=== PATIENT | female | born 1955 | race Caucasian/White ===

== ENCOUNTER → 2017-02-14 | Outpatient (CLI) | payer BC ==
[2016-07-04 15:35] VITALS: BP 139/76
[~2017-02-14] MED LIST: ATOR40TA PO; LISI-338 PO; MELO-156 PO; METH-38 PO; OXYC5TAB PO; TIZA4TAB PO; potassium PO
--- NOTE | 2017-02-14 12:57 | KCIC ---
PROCEDURE Right unilateral digital mammogram with CAD HISTORY Previous left mastectomy TECHNIQUE Bilateral digital routine views were obtained with computer-aided detection. COMPARISON September 28, 2012 and December 28 2015 FINDINGS Density B: Mixed fatty and fibroglandular tissue. There is no suspicious mass, calcifications or areas of architectural distortion. IMPRESSION No suspicious findings. [Recommend routine screening mammography in one year.] This study was interpreted with the benefit of Computerized Aided Detection (CAD). Mammography is not 100% sensitive in detecting breast cancer. Therefore, a self breast exam and a clinical breast exam are very important. A negative mammogram does not negate a clinically suspicious finding and should not result in a delay in biopsying a clinically suspicious abnormality. BI-RADS category 1: Negative. Electronically signed by: Alfred White MD (Feb 14, 2017 12:55:37)
== END | disposition home or self-care (01) ==
LOC: KCIC MAMMO 07:39
PROVIDERS: ATTEND Physician Assistant Medical
DX: Z12.31 Encounter for screening mammogram for malignant neoplasm of breast (principal)
CPT/HCPCS: 77052; G0202; 77067

== ENCOUNTER → 2017-07-16 | Outpatient (CLI) | payer BC ==
[2016-07-04 15:35] VITALS: BP 139/76
[~2017-07-16] MED LIST changes: -MELO-156 PO; +MELO7.5T29 PO
--- NOTE | 2017-07-16 13:06 | KCIC ---
Examination: Ultrasound right lateral calf History: history of bruising one year back. COMPARISON: None available Comparison: None available Findings: No evidence of focal fluid collection identified in the region of the bruise in the right lateral calf region. Examination limited due to patient body habitus. IMPRESSION: No evidence of focal fluid collection or obvious abnormality identified in the right lateral calf region. Electronically signed by: Mike Camacho MD (07/16/2017 1:03 PM) [id number]
== END | disposition home or self-care (01) ==
LOC: KCIC US 10:22
PROVIDERS: ATTEND Physician Assistant Medical
DX: M79.661 Pain in right lower leg (principal); V94.9XXA Unspecified water transport accident, initial encounter
CPT/HCPCS: 76881

== ENCOUNTER 2017-07-29 09:37 | Emergency (ER) | payer BC ==
[~2017-07-29] VITALS: Ht 167.6 cm; Wt 145.1 kg
[~2017-07-29 09:37] MED LIST changes: -OXYC5TAB PO; +OXYC5TAB95 PO
[2017-07-29] MEDS ORDERED: KETOROLAC TROMETHAMINE 30 MG/ML INJ. IV ONE (10:15)
[2017-07-29] MEDS ORDERED: IV NORMAL SALINE 1000ML BAG 1,000 ML IV ONE (10:15)
[2017-07-29] MEDS ORDERED: MORPHINE SULFATE 4 MG/ML DISP.SYRIN. IV ONE (10:15)
--- NOTE | 2017-07-29 10:24 | PHYS DOC ---
Past Medical History Past Medical History: Arthritis, Cancer, High Cholesterol Past Surgical History: Cancer Surgery, Hysterectomy, Lumbar Laminectomy, Tonsillectomy, Other Additional Past Surgical Histo: LAP BAND Alcohol Use: Occasionally Drug Use: None Adult General Chief Complaint Chief Complaint: FLANK PAIN HPI HPI Patient is a 61 year old female who presents with complaints of left flank pain that has gradually gotten worse, he feels like it radiates to the abdomen. Patient denies any trauma. Patient denies any vaginal discharge or dysuria or hematuria. Patient denies any sick contacts. Patient has not had pain like this before. No fevers, chills, rashes, no sick contacts. Review of Systems Review of Systems Constitutional: Denies fever or chills [] HENT: Denies nasal congestion or sore throat [] Respiratory: Denies cough or shortness of breath [] Cardiovascular: No chest pain GI: Yes abdominal pain. Denies nausea, vomiting, bloody stools or diarrhea [] Back: Left-sided flank pain : Denies dysuria or hematuria [] Musculoskeletal: Denies joint pain [] Integument: Denies rash or skin lesions [] Neurologic: Denies headache, focal weakness or sensory changes [] Current Medications Current Medications Current Medications Medications (Trade) Dose Ordered Sig/Kunal Start Time Stop Time Status Last Admin Dose Admin Ketorolac Tromethamine (Toradol) 30 mg 1X ONCE 07/29/17 10:15 07/29/17 10:16 DC 07/29/17 11:02 30 MG Morphine Sulfate 4 mg 1X ONCE 07/29/17 10:15 07/29/17 10:16 DC 07/29/17 11:03 4 MG Sodium Chloride 1,000 ml @ 1,000 mls/hr 1X ONCE 07/29/17 10:15 07/29/17 11:14 DC 07/29/17 11:01 1,000 MLS/HR Allergies Allergies Allergies Coded Allergies Type Severity Reaction Last Updated Verified acetaminophen Allergy Intermediate Hives 07/01/16 Yes Physical Exam Physical Exam Constitutional: Well developed, well nourished, no acute distress, non-toxic appearance. Morbidly obese HENT: Normocephalic, atraumatic, bilateral external ears normal, oropharynx dry , no oral exudates, nose normal. [] Eyes: EOMI, conjunctiva normal, no discharge. [] Neck: Normal range of motion, no tenderness, trachea midline, no stridor. [] Cardiovascular:Heart rate regular rhythm, no murmur, equal pulses, normal perfusion Lungs & Thorax: Bilateral breath sounds clear to auscultation, no tachypnea Abdomen: Bowel sounds normal, soft, no tenderness, no masses, no pulsatile masses. [] Skin: Warm, dry, no erythema, no rash. [] Back: TTP at left lower back and posterior and anterior hip reproduces symptoms. Extremities: No tenderness, no cyanosis, no DVT, ROM intact, no edema. NO evidence of septic joint Neurologic: Alert and oriented X 3, normal motor function, , no focal deficits noted. [] Psychologic: Affect normal, judgement normal, mood normal. [] Current Patient Data Vital Signs Vital Signs Date Time Temp Pulse Resp B/P (MAP) Pulse Ox O2 Delivery O2 Flow Rate FiO2 07/29/17 11:03 16 95 Room Air 07/29/17 10:05 98.6 82 173/96 (121) 98.6 Lab Values Laboratory Tests Test 07/29/17 10:01 07/29/17 11:05 Urine Collection Type Void Urine Color Yellow Urine Clarity Clear Urine pH 5.5 Urine Specific Dixon 1.020 Urine Protein Negative mg/dL (NEG-TRACE) Urine Glucose (UA) Negative mg/dL (NEG) Urine Ketones (Stick) Negative mg/dL (NEG) Urine Blood Negative (NEG) Urine Nitrite Negative (NEG) Urine Bilirubin Negative (NEG) Urine Urobilinogen Dipstick 0.2 mg/dL (0.2 mg/dL) Urine Leukocyte Esterase Negative (NEG) Urine RBC 0 /HPF (0-2) Urine WBC 0 /HPF (0-4) Urine Squamous Epithelial Cells Few /LPF Urine Bacteria 0 /HPF (0-FEW) White Blood Count 6.2 x10^3/uL (4.0-11.0) Red Blood Count 4.46 x10^6/uL (3.50-5.40) Hemoglobin 13.3 g/dL (12.0-15.5) Hematocrit 39.5 % (36.0-47.0) Mean Corpuscular Volume 89 fL (79-100) Mean Corpuscular Hemoglobin 30 pg (25-35) Mean Corpuscular Hemoglobin Concent 34 g/dL (31-37) Red Cell Distribution Width 13.4 % (11.5-14.5) Platelet Count 188 x10^3/uL (140-400) Neutrophils (%) (Auto) 70 % (31-73) Lymphocytes (%) (Auto) 23 % (24-48) L Monocytes (%) (Auto) 5 % (0-9) Eosinophils (%) (Auto) 2 % (0-3) Basophils (%) (Auto) 0 % (0-3) Neutrophils # (Auto) 4.3 x10^3uL (1.8-7.7) Lymphocytes # (Auto) 1.4 x10^3/uL (1.0-4.8) Monocytes # (Auto) 0.3 x10^3/uL (0.0-1.1) Eosinophils # (Auto) 0.1 x10^3/uL (0.0-0.7) Basophils # (Auto) 0.0 x10^3/uL (0.0-0.2) Sodium Level 140 mmol/L (136-145) Potassium Level 4.0 mmol/L (3.5-5.1) Chloride Level 103 mmol/L (98-107) Carbon Dioxide Level 32 mmol/L (21-32) Anion Gap 5 (6-14) L Blood Urea Nitrogen 15 mg/dL (7-20) Creatinine 0.7 mg/dL (0.6-1.0) Estimated GFR (Cockcroft-Gault) 85.1 BUN/Creatinine Ratio 21 (6-20) H Glucose Level 123 mg/dL (70-99) H Calcium Level 9.4 mg/dL (8.5-10.1) Total Bilirubin 0.5 mg/dL (0.2-1.0) Aspartate Amino Transferase (AST) 18 U/L (15-37) Alanine Aminotransferase (ALT) 28 U/L (14-59) Alkaline Phosphatase 87 U/L (46-116) Total Protein 7.2 g/dL (6.4-8.2) Albumin 3.5 g/dL (3.4-5.0) Albumin/Globulin Ratio 0.9 (1.0-1.7) L Laboratory Tests 07/29/17 11:05 Laboratory Tests 07/29/17 11:05 EKG EKG [] Radiology/Procedures Radiology/Procedures CT: no acute findings[] Course & Med Decision Making Course & Med Decision Making Pertinent Labs and Imaging studies reviewed. (See chart for details) BEEN discussed with the patient and the family member. Patient is already on oxycodone, cooperative the medications and treatments have been discussed with patient and family for pain control. I expect today and that I'm not comfortable giving any other prescriptions for narcotics as it may have negative effects on the patient, they understand and agree. 1212 patient now states that his symptoms are worse with movement and when repositioning herself. [] Dragon Disclaimer Dragon Disclaimer This electronic medical record was generated, in whole or in part, using a voice recognition dictation system. Departure Departure Impression: Primary Impression: Back pain Additional Impression: Pain, hip Disposition: 01 HOME, SELF-CARE Condition: STABLE Referrals: SUDEEP BROWN (PCP) Please follow-up with your PCP for recheck and reevaluation in one to 2 days. If your pain worsens or new concerning symptoms develop please return to the ED immediately or see your PCP sooner. May take ibuprofen for additional pain control you can also use icy hot to the affected area Patient Instructions: Back Pain, Adult, Cryotherapy, Hip Pain Problem Qualifiers Sotero UJNIOR MD Jul 29, 2017 10:24
--- NOTE | 2017-07-29 11:01 | RAD ---
Indication left flank pain for a week. Axial images were obtained through the abdomen and pelvis. Examination was tailored for the detection of renal and/or ureteral calculi. No IV or gastrointestinal contrast was administered. The lung bases are clear. No acute or significant finding is seen in the liver. The gallbladder appears grossly unremarkable. The spleen is at the upper limits of normal in size. Gastric lap band is noted. No pancreatic pathology is seen. No adrenal masses are seen. There is a small calcification seen associated with the left kidney. No hydronephrosis hydroureter or calcification is seen along the course of either ureter. A few phleboliths are noted in the pelvis. No acute finding is seen in the abdomen. In the pelvis no acute finding is apparent. There are significant degenerative changes in the lumbar spine likely with associated multilevel spinal stenosis. IMPRESSION: No acute finding seen in the abdomen or pelvis. Chronic musculoskeletal changes PQRS Compliance Statement: One or more of the following individualized dose reduction techniques were utilized for this examination: 1. Automated exposure control 2. Adjustment of the mA and/or kV according to patient size 3. Use of iterative reconstruction technique
[2017-07-29 11:15] LABS: BACTERIA,URINE 0 /HPF (0-FEW); BILIRUBIN,URINE NEGATIVE (NEG); GLUCOSE,URINE NEGATIVE (NEG); NITRITE,URINE NEGATIVE (NEG); PH,URINE 5.5; PROTEIN,URINE NEGATIVE (NEG-TRACE); RBC,URINE 0 /HPF (0-2); SQUAMOUS EPITHELIAL CELL,UR FEW /LPF; UROBILINOGEN,URINE 0.2 mg/dL (0.2 mg/dL); WBC,URINE 0 /HPF (0-4)
[2017-07-29 11:22] LABS: BASO % 0 % (0-3); EOS % 2 % (0-3); HEMATOCRIT 39.5 % (36.0-47.0); HEMOGLOBIN 13.3 g/dL (12.0-15.5); LYMPH # 1.4 x10^3/uL (1.0-4.8); LYMPH % 23 % (24-48); MEAN CORPUSCULAR HEMOGLOBIN 30 pg (25-35); MEAN CORPUSCULAR HGB CONC 34 g/dL (31-37); MEAN CORPUSCULAR VOLUME 89 fL (79-100); MONO % 5 % (0-9); NEUT % 70 % (31-73); PLATELET COUNT 188 x10^3/uL (140-400); RED BLOOD COUNT 4.46 x10^6/uL (3.50-5.40); RED CELL DISTRIBUTION WIDTH 13.4 % (11.5-14.5); WHITE BLOOD COUNT 6.2 x10^3/uL (4.0-11.0)
[2017-07-29 11:26] LABS: CALCIUM 9.4 mg/dL (8.5-10.1); CREATININE 0.7 mg/dL (0.6-1.0); GFR 85.1
[2017-07-29 11:31] LABS: ALBUMIN 3.5 g/dL (3.4-5.0); ALBUMIN/GLOBULIN RATIO 0.9 (1.0-1.7); TOTAL BILIRUBIN 0.5 mg/dL (0.2-1.0); TOTAL PROTEIN 7.2 g/dL (6.4-8.2)
[2017-07-29 12:21] VITALS: BP 141/77
== END 2017-07-29 12:25 | disposition home or self-care (01) ==
LOC: ER 09:37
DX: R10.9 Unspecified abdominal pain (principal); M19.90 Unspecified osteoarthritis, unspecified site; E78.00 Pure hypercholesterolemia, unspecified; Z90.710 Acquired absence of both cervix and uterus; Z88.6 Allergy status to analgesic agent
CPT/HCPCS: 36415; 74176; 80053; 81001; 85025; 96361; 96374; 96375; 99285; J1885; J2270; J7030

== ENCOUNTER → 2019-01-14 | Outpatient (CLI) | payer BC ==
[~2019-01-14] MED LIST changes: +OXYC5TAB4 PO; -OXYC5TAB95 PO
--- NOTE | 2019-01-14 10:32 | RAD ---
Left lower extremity bone length study, 2 views, 01/14/2019: HISTORY: Knee arthritis, preoperative planning AP upright views of the left femur and lower leg were obtained with skin markers placed laterally as requested to facilitate bone length measurements for surgical planning. There is severe narrowing of the left knee joint space medially with subchondral sclerosis and spurring. These limited views are otherwise unremarkable. Electronically signed by: Hernan Valencia MD (01/14/2019 10:29 AM) [facility]
--- NOTE | 2019-01-14 15:23 | RAD ---
MR of the left knee - Morrow and Nephew protocol History: CHRONIC LEFT KNEE PAIN, MORROW AND NEPHEW PROTOCOL. Technique: Images are obtained in accordance with the standard Morrow and Nephew protocol. Note this is not a diagnostic exam, but solely for the purpose of Morrow and Nephew vp medical construction. Medial meniscal tear. Primary osteoarthritis. Anterior cruciate ligament is heterogeneous. Electronically signed by: Hubert Casper MD (01/14/2019 3:20 PM) [facility]
== END | disposition home or self-care (01) ==
LOC: RAD 09:12
PROVIDERS: ATTEND Orthopaedic Surgery Sports Medicine
DX: Z01.818 Encounter for other preprocedural examination (principal); S83.242A Other tear of medial meniscus, current injury, left knee, initial encounter; M17.12 Unilateral primary osteoarthritis, left knee; X58.XXXA Exposure to other specified factors, initial encounter; Y93.89 Activity, other specified; Y92.89 Other specified places as the place of occurrence of the external cause; Y99.8 Other external cause status
CPT/HCPCS: 73721; 77073

== ENCOUNTER → 2019-03-01 | Outpatient (CLI) | payer BC ==
[~2019-03-01] MED LIST changes: +ASPI-630 PO; +MULT1TAB52 PO; +TELM40TA4 PO; +WARF-78 PO
--- NOTE | 2019-03-01 13:16 | EKG ---
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
--- NOTE | 2019-03-01 15:01 | RAD ---
AP and Lateral Views of the Chest 03/01/2019 8:02 AM Indication: PRE OP KNEE SURGERY. Comparison: CT angiography of the chest July 04, 2016. Findings: No pneumothorax or pleural effusion is seen. Heart size is normal. No acute osseous changes are identified. Diffuse interstitial coarsening is seen. Minimal left basilar scarring or atelectasis noted. IMPRESSION: 1. No radiographic evidence of acute cardiopulmonary process 2. Mild interstitial coarsening, likely chronic Electronically signed by: Gallito Whiting MD (03/01/2019 2:59 PM) [facility]
== END | disposition home or self-care (01) ==
LOC: SURGPAT 14:05
PROVIDERS: ATTEND Orthopaedic Surgery Sports Medicine
DX: Z01.818 Encounter for other preprocedural examination (principal); M17.12 Unilateral primary osteoarthritis, left knee; I10 Essential (primary) hypertension
CPT/HCPCS: 36415; 71046; 82306; 87641; 93005

== ENCOUNTER 2019-03-15 06:01 | Inpatient (IN) | payer BC ==
[~2019-03-15] VITALS: Ht 167.6 cm; Wt 103.9 kg
[2019-03-15] VITALS (12 sets, daily range): BP systolic 105–134; BP diastolic 56–75
[~2019-03-15 06:01] MED LIST changes: +EPINEPHRINE IRR ONE; +MELOXICAM 7.5 MG TABLET PO PRN; +NORMAL SALINE IRR ONE; +TRANEXAMIC ACID 1,000 MG in IV NS 50ML -- 1ST BAG INJ ONE; +TV=100ml MORPHINE 5 MG, KETOROLAC 30 MG, ROPIVacaine 0.5% PF 60 ML, EPINEPH... INT ART ONE; -WARF-78 PO
[2019-03-15] MEDS ORDERED: WARF-78 PO (06:32)
[2019-03-15] MEDS ORDERED: PROPOFOL 20 ML IV ONE ×2 (06:59→08:41)
[2019-03-15] MEDS ORDERED: FAMOTIDINE 20 MG/2 ML VIAL ONE (06:59)
[2019-03-15] MEDS ORDERED: ROCURONIUM 50 MG/5 ML VIAL. ONE (06:59)
[2019-03-15] MEDS ORDERED: MIDAZOLAM HCL/PF 2 MG/2 ML VIAL. ONE (06:59)
[2019-03-15] MEDS ORDERED: LIDOCAINE 2% PF 5 ML VIAL. ONE (06:59)
[2019-03-15] MEDS ORDERED: fentaNYL PF VIAL 100 MCG/2 ML VIAL ONE (06:59)
[2019-03-15] MEDS ORDERED: ONDANSETRON PF 4 MG/2 ML VIAL. ONE (06:59)
[2019-03-15] MEDS ORDERED: ONDANSETRON PF 4 MG/2 ML VIAL. IV PRN (07:00)
[2019-03-15] MEDS ORDERED: PROCHLORPERAZINE 5 MG TABLET. PO PRN (07:00)
[2019-03-15] MEDS ORDERED: diphenhydrAMINE 50 MG/ML VIAL IV PRN (07:00)
[2019-03-15] MEDS ORDERED: 0.9 % SODIUM CHLORIDE 10 ML DISP.SYRIN. IV PRN (07:00)
[2019-03-15] MEDS ORDERED: fentaNYL PF VIAL 100 MCG/2 ML VIAL IV PRN ×2 (07:00)
[2019-03-15] MEDS ORDERED: PROCHLORPERAZINE 10 MG/2 ML VIAL. IV PRN (07:00)
[2019-03-15] MEDS ORDERED: LIDOCAINE 1% PF 2 ML VIAL. ID PRN (07:00)
[2019-03-15] MEDS ORDERED: ZOLPIDEM 5 MG TABLET. PO PRN (07:00)
[2019-03-15] MEDS ORDERED: IV RINGERS,LACTATED 1000ML 1,000 ML IV SCH (07:00)
[2019-03-15] MEDS ORDERED: HYDROmorphone 2 MG/ML VIAL IV PRN (07:00)
[2019-03-15] MEDS ORDERED: METOCLOPRAMIDE HCL 10 MG/2 ML VIAL. IV PRN (07:00)
[2019-03-15] MEDS ORDERED: DEXTROSE 50% 25 GM / 50ML DISP.SYRIN. IV PRN (07:00)
[2019-03-15] MEDS ORDERED: METHOCARBAMOL 750 MG TABLET PO PRN (07:00)
[2019-03-15] MEDS ORDERED: CALCIUM CARBONATE 500 MG TAB.CHEW PO PRN (07:00)
[2019-03-15] MEDS ORDERED: MORPHINE SULFATE 2 MG/ML VIAL. IV PRN ×2 (07:00)
[2019-03-15] MEDS ORDERED: DEXAMETHASONE SOD PHOS 20 MG/5 ML VIAL. ONE (07:02)
[2019-03-15] MEDS ORDERED: SEVOFLURANE > 120 MINUTES. IH ONE (07:28)
[2019-03-15] MEDS ORDERED: TRANEXAMIC ACID 1,000 MG in IV NS 50ML -- 2ND BAG INJ ONE (08:00)
[2019-03-15] MEDS ORDERED: GLYCOPYRROLATE 1 MG/5 ML VIAL. ONE (08:45)
[2019-03-15] MEDS ORDERED: NEOSTIGMINE METHYLSULFATE 5 MG/5 ML SYRINGE. ONE (08:45)
[2019-03-15] MEDS ORDERED: NON FORMULARY ITEM (Multivitamin (Multivitamins) 1 EACH) PO SCH (09:00)
--- NOTE | 2019-03-15 10:05 | PDOC4 ---
Operative Note Operative Note Date of procedure: 03/15/19 Surgeon: Minh Pelaez.: Uziel Beatty, JACQUELINE Preoperative diagnosis: Advanced primary left knee degenerative joint disease Postoperative diagnosis: Same Procedure performed: Left total knee arthroplasty Anesthesia: Gen. Findings: Advanced primary left knee degenerative joint disease Tourniquet time: 66 minutes Blood loss: 100 mL Complications: None Components inserted: Morrow and nephew size 6 Journey II Oxinium right femur, 26 mm biconvex patella, 9 mm thick polyethylene articular insert, size 4 journey II tibial baseplate Reason for procedure: Patient is a very pleasant female whose right knee have been hurting her more and interfering with her activities of daily living. We had tried a rehabilitation program, intra-articular injections, and despite these interventions her pain was still severe progressive and therefore we had a discussion of the risks, benefits, and alternatives to proceeding with the right side today and she wished to do this. Description of procedure: Patient was greeted in the preoperative holding area by myself for the correct extremity was verified and marked. She was taken back to the operative suite and her antibiotics were started as she was brought back. Once in the operating room, she was transferred gently supine to the operative table and secured the bed with successful induction of a general anesthetic. All pressure points were padded. Examination under anesthesia demonstrated range of motion from 0 to 130. Knee was stable to varus and valgus. Nonsterile tourniquet was taped in place to her right upper thigh. Padded rest was secured to the bed at her hip as well as across foot of the bed to maintain her leg at 90 passively. Right lower extremity was then prepped and draped in our usual sterile fashion including an [place]. We then conducted our standard preoperative timeout. I then palpated and marked surface anatomy and shaunna a line from my standard anterior midline skin incision. Extremity was exsanguinated with an Esmarch and tourniquet was insufflated to 350 mmHg. Skin was incised with a scalpel and dissected subcutaneous tissue and cauterized bleeders with electrocautery. I identified her quadriceps tendon, borders of her patellar patellar tendon and tibial tubercle. I then made my standard medial parapatellar arthrotomy. I then performed my medial release with combination of electrocautery and Bell elevator. Osteophytes were removed with the Rongeur at the proximal medial tibia. The knee was then flexed and the cruciates were excised. I then palpated and marked Whitesides line and the epicondylar axis with electrocautery, I then pinned my Visionaire cutting block into position. I then made my distal femoral cut after placing my retractors. I then impacted my distal femoral cutting block into position referencing her landmarks. This was secured with threaded pins. I then made my distal femoral cuts and removed the cutting block and loose bony ends. After this, I used the Visionaire tibial block and pinned this cutting block into position and repositioned my retractors and added my popliteal retractor. I then made my proximal tibial cut and remove the bony piece was circumferentially electrocautery. After this, her leg was brought out into extension and alignment was confirmed with a spacer block and drop gracie. The knee was then repositioned in the retractors were added back, I then sized and placed my trial tibial baseplate and then pinned this into position followed by drilling and punching for the fins. I then placed my trial femoral component and secured it with a single pin and then reamed and punched for the cam portion. The end was then removed. The cam portion was added in as was a 9 mm articular insert. This was a trial. Range of motion was 0-140. Knee was stable to varus and valgus in extension and mid flexion. I then directed my attention to reaming for my patella, with all components and she had full range of motion, good stability and excellent patellar tracking. I then removed all trial components and thoroughly irrigated the bony surfaces and then proceeded to cement in place her tibial component followed by her femoral component. Care was taken to remove excess cement. A trial articular insert was then engaged into position and the cement was allowed to polymerize with the leg in extension. I again checked for any excess cement. The patellar button was clamped in place and secured with cement. I then injected my periarticular mixture into the wilder- incisional soft tissue envelope. The tourniquet was let down, bleeders were cauterized. She had a fair amount of oozing from the exposed bony surfaces and I elected to place a 1/8 inch Hemovac exiting superolaterally from her knee. After this, the arthrotomy was closed with simple interrupted #1 Vicryl with the exception of a [id number] proximally. Arthrotomy closure tested in flexion and no extravasation of blood was noted. Inverted interrupted 2-0 Vicryl was used for subcutaneous tissue and running 4-0 Monocryl in a buried subcuticular fashion was used for skin. Prior to wound closure all cons correct 2. At the conclusion of the surgery, leg was cleansed and dried and our incisional wound vacuum was applied. Surgery was tolerated well by the patient. She was awakened from anesthesia and transferred gently supine to the hospital bed and taken to the PACU in a stable and extubated condition. Postoperative plan is to admit her to the floor, weightbearing as tolerated, she will receive DVT and antibiotic prophylaxis. She will also receive PT and OT. MINH LAWSON II, MD Mar 15, 2019 10:05
[2019-03-15] MEDS: fentaNYL PF VIAL 100 MCG/2 ML VIAL IV PRN ×2 (10:17→10:45)
--- NOTE | 2019-03-15 10:23 | RAD ---
Two-view study left knee Clinical indications: Postoperative study FINDINGS: A total left knee arthroplasty is evident which is well aligned. No acute fracture or lytic process is seen. IMPRESSION: Total left knee arthroplasty. Electronically signed by: Feng Gomez MD (03/15/2019 10:20 AM) [place] [id number]
[2019-03-15] MEDS: ONDANSETRON ODT 4 MG TAB.RAPDIS. PO SCH ×3 (12:00→23:18)
[2019-03-15] MEDS: ONDANSETRON PF 4 MG/2 ML VIAL. IV SCH ×3 (12:00→23:18)
--- NOTE | 2019-03-15 13:30 | NUR ---
received from recovery. she is alert and oriented x4. she has good motion, pulses and sensation bilateral lower extremities. admission history completed. she is rating her pain a 3-4 upon admission; medicated with fentanyl iv. Addendum: 03/15/19 at 1332 by DORENE GUTHRIE RN plan of care discussed with patient and
[2019-03-15] MEDS ORDERED: WARFARIN 7.5 MG TABLET. PO ONE (16:00)
--- NOTE | 2019-03-15 17:00 | NUR ---
sitting up in recliner; eating supper . remains at bedside. continues to have good sensation motion in lower extremities. rating her pain a "3" refused pain medication at this time. she has a "bubble" from eating broccoli earlier. denies need for nausea medication
[2019-03-15] MEDS: FERROUS SULFATE 325 MG TABLET. PO SCH (17:27)
[2019-03-15] MEDS: IV NORMAL SALINE 1000ML BAG 1,000 ML IV SCH (20:10)
[2019-03-15] MEDS: ATORVASTATIN CALCIUM 40 MG TABLET. PO SCH (21:14)
[2019-03-15] MEDS: oxyCODONE IR 5 MG TABLET PO PRN (23:18)
--- NOTE | 2019-03-15 23:18 | NUR ---
Patient complained of pain and indigestion. Tums and pain pill given per orders. Call light in reach. Patient verbalized understanding on use.
[2019-03-16 03:00] VITALS: BP 100/47
--- NOTE | 2019-03-16 04:22 | NUR ---
Patient has rested quietly, no further complaints of pain or indigestion. Call light in reach.
[2019-03-16 05:14] LABS: HEMATOCRIT 32.8 % (36.0-47.0); HEMOGLOBIN 10.9 g/dL (12.0-15.5)
[2019-03-16 05:17] LABS: PROTHROMBIN TIME PATIENT 14.2 SEC (11.7-14.0)
[2019-03-16] MEDS: ONDANSETRON PF 4 MG/2 ML VIAL. IV SCH (05:45)
[2019-03-16] MEDS: IV NORMAL SALINE 1000ML BAG 1,000 ML IV SCH (05:45)
[2019-03-16] MEDS: ONDANSETRON ODT 4 MG TAB.RAPDIS. PO SCH (05:45)
[2019-03-16] MEDS ORDERED: MAGNESIUM HYDROXIDE 2,400 MG/30 ML ORAL.SUSP. PO PRN (06:00)
[2019-03-16 07:00] VITALS: BP 103/58
[2019-03-16] MEDS: oxyCODONE IR 5 MG TABLET PO PRN ×4 (07:27→21:29)
--- NOTE | 2019-03-16 08:27 | PDOC ---
ORTHO PROGRESS NOTES Subjective Not much pain, she feels that she is doing well. No chest pain, no shortness of breath. Vitals Vital Signs Date Time Temp Pulse Resp B/P (MAP) Pulse Ox O2 Delivery O2 Flow Rate FiO2 03/16/19 07:27 18 Room Air 03/16/19 07:00 98.1 94 103/58 (73) 94 98.1 03/15/19 14:49 2.0 Labs Laboratory Tests Test 03/15/19 06:09 03/16/19 04:30 Prothrombin Time 14.0 SEC (11.7-14.0) 14.2 SEC (11.7-14.0) Prothromb Time International Ratio 1.1 (0.8-1.1) 1.1 (0.8-1.1) Activated Partial Thromboplast Time 29 SEC (24-38) Hemoglobin 10.9 g/dL (12.0-15.5) Hematocrit 32.8 % (36.0-47.0) Mean Corpuscular Hemoglobin Concent 33 g/dL (31-37) Laboratory Tests Test 03/16/19 04:30 Hemoglobin 10.9 g/dL (12.0-15.5) Hematocrit 32.8 % (36.0-47.0) Mean Corpuscular Hemoglobin Concent 33 g/dL (31-37) Prothrombin Time 14.2 SEC (11.7-14.0) Prothromb Time International Ratio 1.1 (0.8-1.1) X-Rays reviewed Notes A and A VAC in place, not much drainage normal motor and sensation in left lower extremity Assessment and Plan PT/OT coumadin cont pain regimen issue regarding Rajni II vs Journey II tibial baseplate discussed ZAK LAWSON II, MD Mar 16, 2019 08:27
[2019-03-16] MEDS: LOSARTAN POTASSIUM 50 MG TABLET. PO SCH (09:00)
[2019-03-16] MEDS ORDERED: ACETAMINOPHEN 500 MG TABLET PO SCH (09:00)
[2019-03-16 10:38] VITALS: BP 103/54
--- NOTE | 2019-03-16 10:50 | NUR ---
Losartan held for bp 103/54 pulse 90
[2019-03-16] MEDS: MULTIVITAMIN with MINERAL TABLET. PO SCH (10:51)
[2019-03-16] MEDS: FERROUS SULFATE 325 MG TABLET. PO SCH ×2 (10:52→17:04)
[2019-03-16] MEDS: SENNOSIDES/DOCUSATE 8.6/50MG TABLET. PO SCH (10:52)
--- NOTE | 2019-03-16 11:41 | NUR ---
Pharmacy Warfarin Dosing Note S:Pharmacy consulted to assist with anticoagulation therapy started 03/15/19 with target INR: 1.6 - 2.5 O:LANA LAURA is a 63 year old F with TKA LABS: Last INR: 1.1 Last HGB: 10.9 Last HCT: 32.8 Last PLT: Last dose of 7.5 mg given on 03/15/19 at 1728 Previous Regimen: Vitamin K given: Drug Interaction Changes: Ongoing Drug Interactions: A:INR of 1.1 is below desired range. Target range for this patient is: 1.6 - 2.5 P: Warfarin dose: 5 mg Today at 1600 Bridge Therapy: None Next INR due 03/17/19 Pharmacy anticoagulation service will continue to follow. PILAR REYN[facility], 03/16/19 1958
--- NOTE | 2019-03-16 11:56 | NUR ---
Per PT blood pressure after treatment 97/49 pulse 49, instructed to drink more fluids, and to call before getting up, in chair with feet elevated, call light within reach
[2019-03-16] MEDS ORDERED: ONDANSETRON ODT 4 MG TAB.RAPDIS. PO PRN (12:00)
[2019-03-16] MEDS ORDERED: ONDANSETRON PF 4 MG/2 ML VIAL. IV PRN (12:00)
[2019-03-16 15:20] VITALS: BP 86/52
--- NOTE | 2019-03-16 15:30 | NUR ---
Hemovac discontinued per order, tolerated procedure well folded 4x4 & foam dressing applied, up in chair with feet elevated, call light within reach
[2019-03-16] MEDS ORDERED: BISACODYL 10 MG SUPP.RECT. PR PRN (16:00)
[2019-03-16] MEDS ORDERED: WARFARIN 5 MG TABLET. PO ONE (16:00)
[2019-03-16 18:38] VITALS: BP 113/65
[2019-03-16] MEDS: ATORVASTATIN CALCIUM 40 MG TABLET. PO SCH (21:28)
[2019-03-16] MEDS: tiZANidine 4 MG TABLET. PO PRN (22:35)
[2019-03-16 22:38] VITALS: BP 119/64
[2019-03-17 03:00] VITALS: BP 83/52
[2019-03-17 04:46] LABS: HEMATOCRIT 31.7 % (36.0-47.0); HEMOGLOBIN 10.9 g/dL (12.0-15.5)
[2019-03-17 04:55] LABS: PROTHROMBIN TIME PATIENT 15.4 SEC (11.7-14.0)
[2019-03-17 06:22] VITALS: BP 110/54
[2019-03-17] MEDS: MULTIVITAMIN with MINERAL TABLET. PO SCH (08:32)
[2019-03-17] MEDS: SENNOSIDES/DOCUSATE 8.6/50MG TABLET. PO SCH (08:32)
[2019-03-17] MEDS: FERROUS SULFATE 325 MG TABLET. PO SCH ×2 (08:32→17:14)
[2019-03-17] MEDS: oxyCODONE IR 5 MG TABLET PO PRN ×4 (08:33→21:32)
[2019-03-17] MEDS: LOSARTAN POTASSIUM 50 MG TABLET. PO SCH (09:00)
--- NOTE | 2019-03-17 09:16 | SNU/HH DC ---
DISCHARGE WITH HOME HEALTH DISCHARGE INFORMATION: Discharge Date: Mar 18, 2019 Final Diagnosis: Left total knee arthroplasty Condition on Discharge: Stable CODE STATUS: Code Status: Full HOME HEALTH: Face to Face: I certify this patient is under my care and that I, or a nurse practitioner or physician's web assistant working with me, had a face to face encounter that meets the physician face to face encounter requirements with this patient on []. Medical Complications: S/P Joint Replacement Mcc For: Admin/Educate Injections RN For Eval/Treatment: No Physical Therapy For: Evalulation/Treatment Occupational Therapy For: Evaluation/Treatment Pt Meets Homebound Status: Poor coordination w/ amb., Unsteady balance w/ amb, POST DISCHARGE ORDERS: Activity Instructions for Disc: Activity as tolerated Weight Bearing Status after Di: Full weight bearing, As tolerated Bathing Instructions: Shower-keep dressing dry, No Tub Bath until see Wound/Incision Care: Keep wound/cast CDI, Do not change dressing CHECKS AFTER DISCHARGE: Checks after discharge: Check blood press - daily FOLLOW-UP: Follow up with: Hortencia in 2 wks Warfarin Follow UP: per Pharmacy TREATMENT/EQUIPMENT ORDERS: Adaptive Equipment Issued: None CERTIFICATION STATEMENT: Certification Statement: Certification Statement: Based on the above finding, I certify that this patient is confined to the home and needs intermittent shelter care, physical therapy and/or speech therapy, or continues to need occupational therapy.~ This patient is under my care, and I have initiated the establishment of the plan of care.~ This patient will be followed by myself or a community physician who will periodically review the plan of care. Home Meds Reported Medications Warfarin Sodium (COUMADIN) 5 Mg Tablet, 5 MG PO DAILY for BLOOD THINNER, #30 TAB 03/15/19 Multivitamin (MULTIVITAMINS) 1 Each Tablet, 1 EACH PO DAILY for SUPPLEMENT, TAB 03/03/19 Telmisartan (TELMISARTAN) 40 Mg Tablet, 40 MG PO DAILY for BP CONTROL, TAB 03/03/19 Aspirin (ASPIRIN) 81 Mg Tab.chew, 81 MG PO DAILY for BLOOD THINNER, TAB.CHEW 03/03/19 Tizanidine Hcl (TIZANIDINE HCL) 4 Mg Tablet, 4 MG PO TID PRN for MUSCLE SPASMS, TAB 03/03/19 Methocarbamol (ROBAXIN-750) 750 Mg Tablet, 750 MG PO PRN Q8HRS PRN for muscle spasms, TAB 07/02/16 [potassium] No Conflict Check, 99 MG PO DAILY for potassium supplement 06/28/16 Atorvastatin Calcium (LIPITOR) 40 Mg Tablet, 40 MG PO HS for FOR CHOLESTEROL CONTROL, #30 TAB 0 Refills 06/28/16 Meloxicam (MELOXICAM) 7.5 Mg Tablet, 7.5 MG PO BID for arthritis pain, TAB 06/28/16 ZAK LAWSON II, MD Mar 17, 2019 09:16
--- NOTE | 2019-03-17 09:18 | PDOC ---
ORTHO PROGRESS NOTES Subjective More pain and dizziness yesterday, better now Vitals Vital Signs Date Time Temp Pulse Resp B/P (MAP) Pulse Ox O2 Delivery O2 Flow Rate FiO2 03/17/19 08:34 Room Air 03/17/19 08:33 20 03/17/19 06:22 97.9 84 110/54 (72) 96 97.9 Labs Laboratory Tests Test 03/16/19 04:30 03/17/19 04:05 Hemoglobin 10.9 g/dL (12.0-15.5) 10.9 g/dL (12.0-15.5) Hematocrit 32.8 % (36.0-47.0) 31.7 % (36.0-47.0) Mean Corpuscular Hemoglobin Concent 33 g/dL (31-37) 34 g/dL (31-37) Prothrombin Time 14.2 SEC (11.7-14.0) 15.4 SEC (11.7-14.0) Prothromb Time International Ratio 1.1 (0.8-1.1) 1.3 (0.8-1.1) Laboratory Tests Test 03/17/19 04:05 Hemoglobin 10.9 g/dL (12.0-15.5) Hematocrit 31.7 % (36.0-47.0) Mean Corpuscular Hemoglobin Concent 34 g/dL (31-37) Prothrombin Time 15.4 SEC (11.7-14.0) Prothromb Time International Ratio 1.3 (0.8-1.1) Notes A and A VAC in place remains NVI LLE Assessment and Plan anticipate home with [facility] tomorrow ZAK LAWSON II, MD Mar 17, 2019 09:18
[2019-03-17] MEDS ORDERED: BISACODYL 5 MG TABLET.DR. PO PRN (11:15)
[2019-03-17 11:20] VITALS: BP 109/58
--- NOTE | 2019-03-17 11:30 | NUR ---
Pharmacy Warfarin Dosing Note S:Pharmacy consulted to assist with anticoagulation therapy started 03/15/19 with target INR: 1.6 - 2.5 O:LANA LAURA is a 63 year old F with TKA LABS: Last INR: 1.3 Last HGB: 10.9 Last HCT: 31.7 Last PLT: Last dose of 5 mg given on 03/16/19 at 1703 Previous Regimen: Vitamin K given: Drug Interaction Changes: Ongoing Drug Interactions: A:INR of 1.3 is below desired range. Target range for this patient is: 1.6 - 2.5 P: Warfarin dose: 4 mg Today at 1600 Bridge Therapy: None Next INR due 03/17/19 Pharmacy anticoagulation service will continue to follow. PILAR REYNOLDS [facility] [place], 03/17/19 1799
[2019-03-17 14:30] VITALS: BP 108/63
[2019-03-17] MEDS ORDERED: WARFARIN 4 MG TABLET. PO ONE (16:00)
--- NOTE | 2019-03-17 18:06 | PATHOLOGY ---
[facility] Accession Number: [id number] . 01 Material submitted: . knee - LEFT KNEE BONE AND SOFT JISSUE. Modifiers: left . 01 Clinician provided ICD-10: n . 01 Clinical history: . Degenerative joint disease . 02 Diagnosis: Segments of bone and soft tissue, left total knee arthroplasty: - Advanced degenerative arthritis. 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 02 Electronically signed: . Sarabjit Smith MD, Pathologist NPI- [id number] . 01 Gross description: . Received in formalin labeled "Meaghan Barajas, left knee bone and soft tissue ", are multiple segments of bone including apparent tibial plateau and patella, and soft tissue, measuring 11.0 x 9.0 x 2.0 cm in aggregate. Several bone segments are partially covered by pitted fox and granular articular cartilage with areas of eburnation. Osteophyte and possible hyperplastic synovial tissue are present with a small fragment of meniscus. 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 ([facility]; 03/15/2019) SHS/SHS . 02 Pathologist provided ICD-10: M17.12 . 02 CPT . 123900, [id number] Specimen Comment: A courtesy copy of this report has been sent to Specimen Comment: [phone], . Specimen Comment: Report sent to / DR BROWN Performed at: 01 [facility] [address], [place] [id number] MD Georgi Dorsey MD Phone: [phone] Performed at: 02 [facility] [address] [place], [place] [id number] MD Sarabjit Smith MD Phone: [phone]
[2019-03-17 18:13] VITALS: BP 93/54
[2019-03-17] MEDS: ATORVASTATIN CALCIUM 40 MG TABLET. PO SCH (21:32)
[2019-03-17] MEDS: tiZANidine 4 MG TABLET. PO PRN (21:34)
[2019-03-18 04:15] LABS: HEMATOCRIT 34.6 % (36.0-47.0); HEMOGLOBIN 11.6 g/dL (12.0-15.5)
[2019-03-18 06:15] VITALS: BP 108/69
[2019-03-18] MEDS: FERROUS SULFATE 325 MG TABLET. PO SCH (07:56)
[2019-03-18] MEDS: MULTIVITAMIN with MINERAL TABLET. PO SCH (07:56)
[2019-03-18] MEDS: SENNOSIDES/DOCUSATE 8.6/50MG TABLET. PO SCH (07:56)
--- NOTE | 2019-03-18 08:30 | PDOC ---
ORTHO PROGRESS NOTES Subjective Pain better, no new complaints. Making progress with PT Vitals Vital Signs Date Time Temp Pulse Resp B/P (MAP) Pulse Ox O2 Delivery O2 Flow Rate FiO2 03/18/19 08:12 Room Air 03/18/19 06:15 98.5 80 16 108/69 (82) 93 98.5 Labs Laboratory Tests Test 03/17/19 04:05 03/18/19 03:55 Hemoglobin 10.9 g/dL (12.0-15.5) 11.6 g/dL (12.0-15.5) Hematocrit 31.7 % (36.0-47.0) 34.6 % (36.0-47.0) Mean Corpuscular Hemoglobin Concent 34 g/dL (31-37) 33 g/dL (31-37) Prothrombin Time 15.4 SEC (11.7-14.0) 15.0 SEC (11.7-14.0) Prothromb Time International Ratio 1.3 (0.8-1.1) 1.2 (0.8-1.1) Laboratory Tests Test 03/18/19 03:55 Hemoglobin 11.6 g/dL (12.0-15.5) Hematocrit 34.6 % (36.0-47.0) Mean Corpuscular Hemoglobin Concent 33 g/dL (31-37) Prothrombin Time 15.0 SEC (11.7-14.0) Prothromb Time International Ratio 1.2 (0.8-1.1) Notes D/C home, outpatient PT. f/u in 2 wks ZAK LAWSON II, MD Mar 18, 2019 08:30
--- NOTE | 2019-03-18 08:33 | PDOC3 ---
Discharge Summary Visit Information Date of Admission: Mar 15, 2019 Date of Discharge: Mar 18, 2019 Admitting Diagnosis: Left knee arthroplasty Brief Hospital Course Allergies Allergies Coded Allergies Type Severity Reaction Last Updated Verified acetaminophen Allergy Intermediate Hives 03/15/19 Yes meperidine Adverse Reaction Intermediate Nausea and Vomiting 03/15/19 Yes Vital Signs Vital Signs Date Time Temp Pulse Resp B/P (MAP) Pulse Ox O2 Delivery O2 Flow Rate FiO2 03/18/19 08:12 Room Air 03/18/19 06:15 98.5 80 16 108/69 (82) 93 98.5 Lab Results Laboratory Tests Test 03/17/19 04:05 03/18/19 03:55 Hemoglobin 10.9 g/dL (12.0-15.5) 11.6 g/dL (12.0-15.5) Hematocrit 31.7 % (36.0-47.0) 34.6 % (36.0-47.0) Mean Corpuscular Hemoglobin Concent 34 g/dL (31-37) 33 g/dL (31-37) Prothrombin Time 15.4 SEC (11.7-14.0) 15.0 SEC (11.7-14.0) Prothromb Time International Ratio 1.3 (0.8-1.1) 1.2 (0.8-1.1) Laboratory Tests Test 03/18/19 03:55 Hemoglobin 11.6 g/dL (12.0-15.5) Hematocrit 34.6 % (36.0-47.0) Mean Corpuscular Hemoglobin Concent 33 g/dL (31-37) Prothrombin Time 15.0 SEC (11.7-14.0) Prothromb Time International Ratio 1.2 (0.8-1.1) Brief Hospital Course Ms. Barajas is a 63 old female who presented to my outpatient orthopedic surgery clinic with complaints of severe and progressive pain that failed conservative therapies including injections. We had a discussion of the risks, benefits, alternatives to total knee arthroplasty and she elected to proceed. She tolerated surgery well and recovered well from anesthesia in the PACU. She was then taken to the joint Center for care and observation. She did receive PT, OT, DVT and antibiotic prophylaxis. She recovered well from surgery and remained hemodynamically stable and afebrile throughout the hospitalization. Pain was controlled on oral pain medicine at the time of discharge. Good prog ress was made with therapy throughout the hospitalization, and activities of daily living were accomplished by the patient. The incision was clean dry and intact and the operative extremity had normal motor and sensation. Discharge Information Condition at Discharge: Stable Follow Up: Weeks Disposition/Orders: D/C to Home Scheduled Aspirin (Aspirin) 81 Mg Tab.chew, 81 MG PO DAILY for BLOOD THINNER, (Reported) Entered as Reported by: GLEN ELIZABETH on 03/03/191421 Last Taken: Unknown Dose on 03/07/19 Last Action: HELD on 03/15/19699 by ANTHONY LAWSON MD Atorvastatin Calcium (Lipitor) 40 Mg Tablet, 40 MG PO HS for FOR CHOLESTEROL CONTROL, #30 Ref 0 (Reported) Entered as Reported by: GLEN ELIZABETH on 06/28/16 144 Last Taken: Unknown Dose on 03/14/19 Last Action: Continued on 03/15/19699 by ANTHONY LAWSON MD Meloxicam (Meloxicam) 7.5 Mg Tablet, 7.5 MG PO BID for arthritis pain, (Reported) Entered as Reported by: GLEN ELIZABETH on 06/28/16 144 Last Taken: Unknown Dose on 03/15/19429 Last Action: HELD on 03/15/19699 by ANTHONY LAWSON MD Multivitamin (Multivitamins) 1 Each Tablet, 1 EACH PO DAILY for SUPPLEMENT, (Reported) Entered as Reported by: GLEN ELIZABETH on 03/03/191421 Last Taken: Unknown Dose on 03/04/19 Last Action: Converted on 03/15/19699 by ANTHONY LAWSON MD Telmisartan (Telmisartan) 40 Mg Tablet, 40 MG PO DAILY for BP CONTROL, (Reported) Entered as Reported by: GLEN ELIZABETH on 03/03/191421 Last Taken: Unknown Dose on 03/15/19429 Last Action: Converted on 03/15/19699 by ANTHONY LAWSON MD Warfarin Sodium (Coumadin) 5 Mg Tablet, 5 MG PO DAILY for BLOOD THINNER, #30 (Reported) Entered as Reported by: MINH BENITEZ on 03/15/19 0632 Last Taken: Unknown Dose on 03/14/19 1700 Last Action: HELD on 03/15/19699 by ANTHONY LAWSON MD [potassium] , 99 MG PO DAILY for potassium supplement, (Reported) Entered as Reported by: GLEN ELIZABETH on 06/28/16 1440 Last Taken: Unknown Dose on 03/14/19 Last Action: Converted on 03/15/19699 by ANTHONY LAWSON MD Scheduled PRN Methocarbamol (Robaxin-750) 750 Mg Tablet, 750 MG PO PRN Q8HRS PRN for muscle spasms, (Reported) Entered as Reported by: YANIRA MAYS on 07/02/16 0838 Last Taken: Unknown Dose on 03/14/19 Last Action: Continued on 03/15/19699 by ANTHONY LAWSON MD Tizanidine Hcl (Tizanidine Hcl) 4 Mg Tablet, 4 MG PO TID PRN for MUSCLE SPASMS, (Reported) Entered as Reported by: GLEN ELIZABETH on 03/03/19 1422 Last Taken: Unknown Dose on 03/14/19 Last Action: Converted on 03/15/19699 by ANTHONY LAWSON MD Patient Instructions Patient Instructions She will be discharged home, outpatient therapy starting tomorrow. The patient will be on Coumadin for a month. She can weight-bear as tolerated. Worrisome signs and symptoms that should prompt a phone call to my office were discussed. We'll see her back in 2 weeks, sooner should a problem arise. ZAK LAWSON II, MD Mar 18, 2019 08:33
[2019-03-18] MEDS: LOSARTAN POTASSIUM 50 MG TABLET. PO SCH (09:00)
[2019-03-18] MEDS: oxyCODONE IR 5 MG TABLET PO PRN ×3 (09:26→14:40)
--- NOTE | 2019-03-18 10:00 | NUR ---
am care completed. verbally reviewed discharge instructions regarding restrictions to daily living such as bathing driving. reviewed medications especially Coumadin and the lab work every Friday, pain med and blood pressure medication and take blood pressure prior to taking. reviewed and demonstrated incisional care and care of OFELIA. Gurinder verbalized understanding of these instructions.
[2019-03-18 10:23] VITALS: BP 110/68
--- NOTE | 2019-03-18 10:23 | NUR ---
Pharmacy Warfarin Dosing Note S:Pharmacy consulted to assist with anticoagulation therapy started 03/15/19 with target INR: 1.6 - 2.5 O:LANA LAURA is a 63 year old F with TKA LABS: Last INR: 1.2 Last HGB: 11.6 Last HCT: 34.6 Last PLT: - Last dose of 4 mg given on 03/17/19 at 1715 Previous Regimen: Vitamin K given: Drug Interaction Changes: Ongoing Drug Interactions: A:INR of 1.2 is below desired range. Target range for this patient is: 1.6 - 2.5 P: Warfarin dose: 5 mg Prior to Discharge Bridge Therapy: None Next INR due Friday during physical therapy appointment at [facility]. Pharmacy anticoagulation service will continue to follow. MINH MCCOY RPH, 03/18/19 6036
[2019-03-18 11:52] VITALS: BP 105/68
--- NOTE | 2019-03-18 11:53 | NUR ---
became slightly dizzy during therapy. states that it resolved quickly when she sat down and is feeling better at this time.
[2019-03-18] MEDS ORDERED: WARFARIN 5 MG TABLET. PO ONE (14:00)
[2019-03-18 15:03] VITALS: BP 82/55
--- NOTE | 2019-03-18 15:18 | NUR ---
states that she did not get dizzy with rehab session. blood pressure remains hypotensive. denies dizziness. no blood pressure medication given since admission. advised to take blood pressure daily and to have it consistently >130/80 for 2 days before taking medication. keep list of blood pressure and to take to her primary doctor if blood pressure does not get above 130/80 verbalized understanding of these instructions. reviewed written discharge instructions with Val and Uziel. gave script for pain medication and op therapy. reviewed lab draws weekly and restrictions to activities of daily living. dismissed to home with
== END 2019-03-18 15:28 | disposition home or self-care (01) | DRG 470 ==
LOC: OPSVCIP 06:01 → 4 NORTH 11:18 → 4 SOUTHEST 03-16 11:07
PROVIDERS: ADMIT Orthopaedic Surgery Sports Medicine; ATTEND Orthopaedic Surgery Sports Medicine
PROC: 0SRD069 Replacement of Left Knee Joint with Oxidized Zirconium on Polyethylene Synthetic Substitute, Cemented, Open Approach (ICD-10-PCS; principal; 2019-03-15 07:30)
DX: M17.0 Bilateral primary osteoarthritis of knee (principal); I10 Essential (primary) hypertension; E78.5 Hyperlipidemia, unspecified; E66.01 Morbid (severe) obesity due to excess calories; I25.2 Old myocardial infarction; Z90.12 Acquired absence of left breast and nipple; Z85.3 Personal history of malignant neoplasm of breast; Z90.710 Acquired absence of both cervix and uterus; Z87.891 Personal history of nicotine dependence; Z82.49 Family history of ischemic heart disease and other diseases of the circulatory system; Z68.37 Body mass index [BMI] 37.0-37.9, adult
CPT/HCPCS: 36415; 73560; 85014; 85018; 85610; 85730; 86850; 86900; 86901; 88304; 88311; A7015; C1713; J0171; J0696; J1100; J1885; J2001; J2250; J2270; J2405; J2704; J2710; J2795; J3010; J3490; J7030; J7120; 97110; 97116; 97150; 97530; 97535; C1769

== ENCOUNTER → 2020-05-23 | Outpatient (CLI) | payer BC ==
[~2020-05-23] MED LIST changes: -EPINEPHRINE IRR ONE; -MELOXICAM 7.5 MG TABLET PO PRN; +MULT-445 PO; -MULT1TAB52 PO; -NORMAL SALINE IRR ONE; -TELM40TA4 PO; +TELM40TA7 PO; -TIZA4TAB PO; +TIZA4TAB2 PO; -TRANEXAMIC ACID 1,000 MG in IV NS 50ML -- 1ST BAG INJ ONE; -TV=100ml MORPHINE 5 MG, KETOROLAC 30 MG, ROPIVacaine 0.5% PF 60 ML, EPINEPH... INT ART ONE; +WARF5TAB2 PO
--- NOTE | 2020-05-23 10:39 | KCIC ---
BRAIN W/O CONTRAST Date: 05/23/2020 9:30 AM Indication: Reason: HEADACHE FOR 13 DAYS, PT HAD SEIZURE 04/30/20 / Spl. Instructions: / History: No known hx seizure, MUNIZ for almost 2 weeks, hx hypertension. Comparison: None. Technique: Multiplanar multisequence MRI of the brain was performed without intravenous contrast using the seizure protocol. Findings: No acute infarct. No acute or chronic hemorrhage. The ventricles are normal in size and configuration without hydrocephalus. Mild scattered FLAIR hyperintensities in the subcortical and periventricular deep white matter, a nonspecific finding, most commonly seen with chronic small vessel ischemic disease. Hippocampi are normal in signal and morphology. No torres matter heterotopia or cortical dysplasia. No evidence of arteriovenous malformation or cavernoma. The scalp and calvarium are normal. The pituitary and sella are normal. No Chiari malformation. The visualized upper cervical spine is normal. The visualized orbits and globes are normal. The visualized paranasal sinuses are clear. The mastoid air cells are clear. Normal flow voids within the vertebral, basilar, and internal carotid arteries indicating patency. IMPRESSION: 1. No acute infarct, hemorrhage, mass, or hydrocephalus. 2. Mild scattered FLAIR hyperintensities in the subcortical and periventricular deep white matter, a nonspecific finding, most commonly seen with chronic small vessel ischemic disease. . Electronically signed by: Aleksander Iraheta MD (05/23/2020 10:36 AM) [id number]
--- NOTE | 2020-05-23 14:11 | KCIC ---
EXAM: DUAL ENERGY X-RAY ABSORPTIOMETRY (DEXA). HISTORY: Postmenopausal screening. FINDINGS: The lowest measured T-score is -2.1 in the distal radius, based on a bone mineral density of 0.561 g/cm^2. Refer to the worksheets for full detail. A bone mineral density of 0.561 g/sq cm in the left proximal femur corresponds with a T score of -2.0. No comparison examinations are available. IMPRESSION: Low bone mass. Bone mineral density yields a T-score between -1.0 and -2.5. Fracture risk is increased. FRAX was not calculated. METHODOLOGY: Dual energy x-ray absorptiometry was performed to measure bone mineral density. The following analysis is based on the 2019 Official Positions of the International Society for Clinical Densitometry: Measurements of the hips and the average of L1-L4 are preferred. When the spine and/or hip cannot be feasibly measured or interpreted, or in the setting of hyperparathyroidism, distal radial bone mineral density may be measured. The lumbar spine T-score is based on the average bone mineral density of L1-L4. In the setting of artifact or anatomic abnormality, some lumbar levels may be excluded, and the remaining levels used for calculation. A single lumbar level is not used for diagnosis, and if only a single level is available for assessment, another anatomic site will be used to assign a diagnosis. The hip T-score is based on the bone mineral density measurement of the femoral neck or total proximal femur of either side, whichever is lowest. Bilateral mean values are not used for diagnosis. The forearm T-score is derived from 33% of the distal radius of the nondominant forearm. For postmenopausal and perimenopausal women, and men age 50 or older, of all ethnic groups, T-scores are calculated through comparison of the current measurement with the NHANES III database standard for females aged 20-29 years. The lowest T-score of the evaluated anatomic sites is used to assign a diagnosis based on the World Health Organization densitometric classification. In premenopausal females and males younger than age 50, a Z-score is calculated based on population specific reference data for patient sex and self-reported ethnicity. Electronically signed by: Celso Ricketts MD (05/23/2020 2:09 PM) [facility]
== END ==
LOC: KCIC MRI 09:07
PROVIDERS: ATTEND Physician Assistant Medical
DX: Z13.820 Encounter for screening for osteoporosis (principal); I67.82 Cerebral ischemia; N95.8 Other specified menopausal and perimenopausal disorders
CPT/HCPCS: 70551; 77080; 77081

== ENCOUNTER → 2020-09-21 | Outpatient (CLI) | payer BC ==
--- NOTE | 2020-09-21 11:18 | KCIC ---
EXAM: Lumbar spine MRI without contrast. HISTORY: Radiculopathy. TECHNIQUE: Multiplanar, multisequence magnetic resonance imaging of the lumbar spine was performed without contrast. COMPARISON: 09/18/2016. FINDINGS: There is S-shaped lumbar scoliosis, with dextrocurvature centered at L2-L3 and levocurvature centered at L4-L5. There is grade 1 anterolisthesis of L4 and L5 and L5 on S1, measuring 2 mm. There is 3 mm retrolisthesis of L2 on L3 and 5 mm retrolisthesis of L3 on L4. There is degenerative endplate remodeling with disc space narrowing, osteophytosis and Schmorl's node formation primarily along the left aspects of L1-L2, L2-L3 and L3-L4. This corresponds with the levels of maximum scoliotic concavity. The conus terminates at L1-L2. There is no fracture. There is no suspicious osseous lesion. Evaluation of the distal aspect of the thoracic spinal cord at T12 demonstrates a dilated central canal measuring 1.5 mm in caliber. 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 There is left renal atrophy and cortical lobulation likely due to scarring. There are laminectomy changes at L4. At T12-L1, there is a disc bulge and endplate remodeling. There is mild left greater than right facet arthropathy. There is mild left foraminal stenosis. At L1-L2, there is a left lateral predominant disc bulge and endplate remodeling. There is mild right and moderate left facet arthropathy. There is slight retrolisthesis. There is moderate left foraminal stenosis. There is mild central canal stenosis. At L2-L3, there is a left lateral predominant disc bulge and endplate ossified ptosis. There is mild right and moderate left facet arthropathy. There is mild retrolisthesis. There is mild right and moderate left foraminal stenosis. There is mild to moderate central canal stenosis. At L3-L4, there is a left lateral predominant disc bulge and endplate osteophytosis. There is moderate bilateral facet arthropathy. There is mild retrolisthesis. There are partial laminectomy changes. There is severe bilateral foraminal stenosis. There is moderate to severe central canal stenosis. At L4-L5, there is a broad-based posterior central to right paracentral disc protrusion and annular tear superimposed on a diffuse disc bulge and right lateral predominant endplate osteophytosis. There is severe bilateral facet arthropathy. There are multiple posterior facet joint synovial cysts, the largest of which measures 1.5 cm on the right. There is hypertrophy of the ligamentum flavum. There is severe right and mild to moderate left foraminal stenosis. There is severe central canal stenosis. At L5-S1, there is severe right greater than left facet arthropathy. There is mild right foraminal stenosis. IMPRESSION: 1. Multilevel degenerative change involving the lumbar spine, described in detail above. This is associated with mild left foraminal stenosis at T12-L1, moderate left foraminal and mild central canal stenosis at L1-L2, mild right and moderate left foraminal and mild to moderate central canal stenosis at L2-L3, severe bilateral foraminal and moderate to severe central canal stenosis at L3-L4, severe right and mild to moderate left foraminal and severe central canal stenosis at L4-L5, and mild right foraminal stenosis at L5-S1. 2. Laminectomy changes at L4. 3. Lumbar scoliosis and multilevel listhesis, described above. 4. 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 This is stable compared to the prior study dated 09/18/2016. Electronically signed by: Isi Segovia MD (09/21/2020 11:15 AM) [place] [id number]
== END ==
LOC: KCIC MRI 09:49
PROVIDERS: ATTEND Physician Assistant Medical
DX: M47.26 Other spondylosis with radiculopathy, lumbar region (principal); M41.86 Other forms of scoliosis, lumbar region; M43.8X6 Other specified deforming dorsopathies, lumbar region; M43.17 Spondylolisthesis, lumbosacral region; M25.78 Osteophyte, vertebrae; M47.815 Spondylosis without myelopathy or radiculopathy, thoracolumbar region; M47.817 Spondylosis without myelopathy or radiculopathy, lumbosacral region; M51.46 Schmorl's nodes, lumbar region
CPT/HCPCS: 72148

== ENCOUNTER → 2020-10-24 | Outpatient (CLI) | payer MEDICARE, BC ==
[~2020-10-24] MED LIST changes: +CALC1CAP7 PO; +DICL150D4 TP; +IOHEXOL 180 MG/ML 10 ML VIAL. ONE; +OLME40TA12 PO; +OXYC5CAP PO; +TRAM50TA PO; +methylPREDNISolone ACETATE 40 MG/ML VIAL. ONE; +methylPREDNISolone ACETATE 80 MG/ML VIAL. ONE
--- NOTE | 2020-10-24 15:10 | PDOC1 ---
INITIAL PAIN CONSULT DATE OF SERVICE: DOS: DATE: 10/24/20 TIME: 14:59 CHIEF COMPLAINT: Chief Complaint: Low back and bilateral lower extremity pain HISTORY OF PRESENT ILLNESS: 65-year-old female presents with complaint of low back and bilateral lower extremity pain for approximately 6 months not the result of any specific injury or accident that she is aware of is getting worse over time worse with walking s tanding changing positions getting up from seated position and vice versa has been disturbing sleep about once to twice a night patient reports is better generally with sitting or laying down but is waking her from sleep occasionally. Patient reports it can affect her bowel bladder control but no loss of continence just increased frequency. Patient reports it does affect her ability walk fairly significantly she is having some significant pain more on the left side than the right but present bilaterally in the lower extremities. Patient reports the pain is in the low back rating the posterior gluteus posterior lateral thighs lateral thighs anterior thighs medial thighs medial lower legs and into the knees patient reports that shooting radiating intermittent intensity worse with walking and standing once again better with sitting or laying down. Patient scribes pain is aching in the back worse towards the end of the day and sometimes at night and radiating as described. Patient reports her disability rating 0-10 10 being the worst is a 6 with family home responsibilities recreation social activity sexual behavior and self-care 5 with occupation and 5 life support activities. Patient has had physical therapy this year as well chiropractic treatment ongoing and exercise ongoing also tried tramadol and oxycodone and meloxicam, with only moderate decrease in pain with tramadol oxycodone no help with meloxicam. Patient did have previous L3-4 laminectomy in 2016 with good results for about 3 years and the pain began to return. Patient had MRI scan lumbar spine dated September 21, 2020 showing to level degenerative change of all of the lumbar spine with mild left foraminal stenosis T12-L1 mild to moderate left foraminal and mild central stenosis L1 to severe bilateral foraminal moderate to severe central canal stenosis L3-4 with mild to moderate foraminal and severe central canal stenosis at L4-5 and mild right foraminal stenosis L5-S1. Patient ports no loss of motor function but significant fatigability lower extremities even with walking only 10 to 15 minutes. PAST MEDICAL HISTORY: PMH: Hypertension, hearing loss, breast cancer 1994, arthritis PREVIOUS SURGERIES: Past Surgical Hx: Tonsillectomy 1958, right ear surgery 1984, D&C 1984, left ear surgery 1995, left breast biopsy 1995 in 1996, colposcopy and laser cervical procedure 1996 hysterectomy 2019 left knee surgery 2003 again 2019 laparoscopic banding 2006, 2016 lumbar laminectomy CURRENT MEDICATIONS: Current Meds: Active Scripts Medications Dose Route/Sig Max Daily Dose Days Date Category Oxycodone Hcl 5 Mg Capsule 5 Mg PO PRN Q6HRS PRN 10/24/20 Reported Diclofenac Sodium 150 Ml Drops 150 Ml TP QID 10/24/20 Reported Tramadol Hcl 50 Mg Tablet 50 Mg PO Q6HRS PRN 10/24/20 Reported Calcium 600 + Vit D 400 Softgl (Calcium Carbonate/Vitamin D3) 1 Each Capsule 1 Cap PO BID 30 10/24/20 Reported Aspirin 81 Mg Tab.chew 1 Tab PO DAILY 10/24/20 Reported Benicar (Olmesartan Medoxomil) 40 Mg Tablet 1 Tab PO DAILY 30 10/24/20 Reported Multivitamins (Multivitamin) 1 Each Tablet 1 Each PO DAILY 03/03/19 Reported Tizanidine Hcl 4 Mg Tablet 4 Mg PO TID PRN 03/03/19 Reported Robaxin-750 (Methocarbamol) 750 Mg Tablet 750 Mg PO PRN Q8HRS PRN 07/02/16 Reported [potassium] 99 Mg PO DAILY 06/28/16 Reported Lipitor (Atorvastatin Calcium) 40 Mg Tablet 40 Mg PO HS 06/28/16 Reported Meloxicam 7.5 Mg Tablet 7.5 Mg PO BID 06/28/16 Reported ALLERGIES; Allergies: Coded Allergies: acetaminophen (Verified Allergy, Intermediate, Hives, 03/15/19) meperidine (Verified Adverse Reaction, Intermediate, Nausea and Vomiting, 03/15/19) FAMILY HISTORY: Family Hx: Breast cancer, heart disease SOCIAL HISTORY: Social Hx: Patient drinks alcohol about 2 mixed drinks a week does not smoke not use any illegal illicit recreational drugs is lives with her spouse lives locally in [facility] REVIEW OF SYSTEMS: ROS: Positive for those items mentioned in history of present illness, all systems are reviewed, otherwise negative, is complete full and well-documented on patient's chart PHYSICAL EXAM: VS: Blood pressure is 167/94 pulse 80 respirations 18 temperature 98.6 F height is 5 feet 5 inches weight is 268 pounds PE: PHYSICAL EXAMINATION: GENERAL: The patient is awake, alert, oriented, appropriate, very pleasant demeanor HEENT: Shows normocephalic, atraumatic. Extraocular movements are intact and symmetrical. Oral cavity: Mucous membranes moist and pink. Dentition is intact. NECK: Shows anterior throat supple without palpable lymphadenopathy noted. Swallow reflex symmetrical. CHEST: Shows normal on inspection. Breath sounds are clear bilaterally, no rales rhonchi or wheezes. HEART: Shows S1, S2 clear. No murmurs auscultated. ABDOMEN: Soft, nontender, nondistended, obese. No palpable organomegaly is noted. No rebound or guarding demonstrated. BACK: Shows spine grossly in the midline. Normal-appearing cervical lordotic curvature. There is slightly increased thoracic kyphosis, some minor flattening of the lumbar lordotic curvature with well-healed midline surgical scar. Lumb ar paraspinous muscles show symmetrical on inspection, on palpation shows some moderate tenderness diffusely throughout the upper, middle and lower distribution of the paraspinous muscles without specific trigger points, without radiation of pain. The patient has good rotational motion of the lumbar spine, both laterally as well as extension and flexion without significant difficulty. No tenderness over the spinous processes, sacrum or sacroiliac regions. EXTREMITIES: Lower extremities show deep tendon reflexes 1+ in the patellar and tendo calcaneus tendons. Motor exam is 4 on a scale of 5 with right dorsiflexion, extension, quadriceps and hamstring flexion and 4/5 on the left. Peripheral pulses are 1+ posterior tibial. No peripheral edema is noted bila terally. Lower extremities are warm and dry to touch, equal in color and appearance. Straight leg raise noted to be negative bilaterally. Gaenslen's and Dom's maneuvers are negative as well. The patient is able to stand, stand on her toes but loses balance fairly quickly walks with a slight shuffling gait does appear to favor the right lower extremity over the left slightly but does not use any assistive devices to ambulate. SKIN: Shows warm and dry, good turgor. No edema. No sores, rashes or bruising throughout. IMPRESSION: Impression: 65-year-old female with long history low back pain bilateral lower extremity pain worse over the past 6 months or so. MRI scan lumbar spine as noted Hypertension Arthritis History of breast cancer Plan: Options were discussed with the patient including conservative medical management physical therapy and interventional techniques. Patient elects interventional techniques. We discussed a lumbar epidural steroid injection using description as well as anatomical models to describe the procedure. Risks were discussed including but not limited to: Bleeding, infection, possibility of epidural hematoma and subsequent neurological compromise, dural puncture, headaches, spinal cord and/or nerve damage, side effects of steroid medication, and poor results regarding pain control. Patient understands wished to proceed. Patient will return to clinic in approximate 2 weeks for follow-up was counseled as to return appointment activity level and side effects to be aware of. Procedure is lumbar epidural steroid injection under local anesthetic using sterile prep and drape at the L4-5 level using C-arm fluoroscopic guidance in both AP and lateral views medications injected is 120 mg Depo-Medrol + 10 mL preservative-free normal saline and 2 mL contrast- condition at discharge is stable patient tolerated procedure well had no complications. MERRITT MERINO MD Oct 24, 2020 15:10
== END | disposition home or self-care (01) ==
LOC: PNCL 13:09
PROVIDERS: ATTEND Anesthesiology
DX: M54.5 Low back pain (principal); M79.605 Pain in left leg; M79.604 Pain in right leg; I10 Essential (primary) hypertension; E78.00 Pure hypercholesterolemia, unspecified; E66.9 Obesity, unspecified; J45.909 Unspecified asthma, uncomplicated; M19.90 Unspecified osteoarthritis, unspecified site; Z85.3 Personal history of malignant neoplasm of breast; Z90.710 Acquired absence of both cervix and uterus; Z98.890 Other specified postprocedural states; Z79.899 Other long term (current) drug therapy; Z79.82 Long term (current) use of aspirin; Z87.891 Personal history of nicotine dependence; Z88.8 Allergy status to other drugs, medicaments and biological substances; Z82.49 Family history of ischemic heart disease and other diseases of the circulatory system; Z83.3 Family history of diabetes mellitus; Z80.0 Family history of malignant neoplasm of digestive organs; Z80.3 Family history of malignant neoplasm of breast
CPT/HCPCS: 62323; J1030; J1040; Q9965

== ENCOUNTER → 2020-11-14 | Outpatient (CLI) | payer MEDICARE, BC ==
[~2020-11-14] MED LIST changes: +BUPIVACAINE MPF 0.25% 10 ML VIAL. ONE; -methylPREDNISolone ACETATE 40 MG/ML VIAL. ONE
--- NOTE | 2020-11-14 08:13 | PDOC ---
Progress Note - Pain Clinic Date of Service: DOS: DATE: 11/14/20 TIME: 08:08 Diagnosis: Dx: Lumbar radiculopathy with lumbar degenerative disc disease lumbar spinal stenosis and post lumbar laminectomy Right knee joint pain with osteoarthritis History or Present Illness: HPI: 65-year-old female returns follow-up status post lumbar epidural to injection x1. Patient reports about 50% improvement with the low back pain her main complaint is right knee pain she has documented osteoarthritis tricompartmental in the right knee has been getting much more noticeable now that her back is doing better. Patient reports it is radiating in the lower leg aching and tight worse with walking standing putting all her weight on her right leg specially climbing stairs or steps has been waking her from sleep occasionally. Patient ports her back is doing much better she is increase her distance walking doing household activities and travel with greater ease with the regard to the low back but the right knee is limiting things and is becoming much more noticeable. Patient reports is a 5 on a scale 10 is worse over the past week 3 on average 1 its least is a 5 today patient reports no new motor or sensory deficits no new bowel or bladder incontinence or other complaints. Physical Exam: VS: Blood pressure is 133/79 pulse 71 respiration 16 temperature 98.2 F weight is 271 pounds PE: PHYSICAL EXAMINATION: GENERAL: The patient is awake, alert, oriented, appropriate, very pleasant demeanor HEENT: Shows normocephalic, atraumatic. Extraocular movements are intact and symmetrical. Oral cavity: Mucous membranes moist and pink. NECK: Shows anterior throat supple without palpable lymphadenopathy noted. Swallow reflex symmetrical. CHEST: Shows normal on inspection. Breath sounds are clear bilaterally, distant but no rales rhonchi or wheezes bilaterally. HEART: Shows S1, S2 clear. No murmurs auscultated. ABDOMEN: Soft, nontender, nondistended, obese. No palpable organomegaly is noted. No rebound or guarding demonstrated. BACK: Shows spine grossly in the midline. Normal-appearing cervical lordotic curvature. There is slightly increased thoracic kyphosis, some minor flattening of the lumbar lordotic curvature. Lumbar paraspinous muscles show symmetrical on inspection, on palpation shows some moderate tenderness diffusely throughout the upper, middle and lower distribution of the paraspinous muscles, but without specific trigger points, without radiation of pain. The patient has good rotational motion of the lumbar spine, both laterally as well as extension and flexion without significant difficulty. No tenderness over the spinous processes, sacrum or sacroiliac regions. EXTREMITIES: Lower extremities show deep tendon reflexes 1+ in the patellar and tendo calcaneus tendons. Motor exam is 4 on a scale of 5 with right dorsiflexion, extension, quadriceps and hamstring flexion and 4/5 on the left. Peripheral pulses are 1+ posterior tibial. No peripheral edema is noted bilaterally. Lower extremities are warm and dry to touch, equal in color and appearance. Patient's right knee shows good hinged motion passively as well as actively some moderate tenderness with palpation over the lateral aspect but not over the medial and good mobility of the patella without significant pain. Patient has negative shelf sign no crepitus or ratcheting. SKIN: Shows warm and dry, good turgor. No edema. No sores, rashes or bruising throughout. Procedure: Procedure: Options were discussed with the patient. Patient chart was reviewed as her current medication regimen updated current review of systems updated today as well. We will proceed with a right intra-articular knee joint injection today with fluoroscopic guidance. Risks are discussed including but not limited to bleeding infection possibility of intravascular injection sequelae spread to local anesthetic and numbness side effects steroid medication exposure to fluoroscopy and portal scarring pain control. Patient understands wished to proceed. Patient return to clinic in approximately 2 weeks for follow-up was counseled as return appointment activity level and side effects to be aware of. Medication Injected: Med Injected: Under sterile prep and drape patient's right knee was prepared and under direct visualization using fluoroscopy the lateral compartment of the knee was notified using 1% lidocaine was topically anesthetized using a 25-gauge dilated Quincke needle was then entered under direct visualization fluoroscopically without difficulty stylette was removed and and 1.5 cc of contrast was injected with good spread within the knee joint without washout or uptake. And at this time 3 cc of 0.25% bupivacaine +80 mg of Depo-Medrol was then injected needle was withdrawn and sterile bandage was applied. Patient tolerated procedure well and had no complications. Condition at Discharge: Condition at Discharge: Condition at discharge is stable, patient tolerated procedure well and had no complications. MERRITT MERINO MD Nov 14, 2020 08:13
== END | disposition home or self-care (01) ==
LOC: PNCL 07:25
PROVIDERS: ATTEND Anesthesiology
DX: M17.11 Unilateral primary osteoarthritis, right knee (principal); M51.16 Intervertebral disc disorders with radiculopathy, lumbar region; M48.061 Spinal stenosis, lumbar region without neurogenic claudication; I25.2 Old myocardial infarction; E78.5 Hyperlipidemia, unspecified; E66.01 Morbid (severe) obesity due to excess calories; M17.0 Bilateral primary osteoarthritis of knee; J45.909 Unspecified asthma, uncomplicated; Z79.02 Long term (current) use of antithrombotics/antiplatelets; Z79.01 Long term (current) use of anticoagulants; Z85.3 Personal history of malignant neoplasm of breast; Z88.8 Allergy status to other drugs, medicaments and biological substances; Z88.6 Allergy status to analgesic agent; Z79.899 Other long term (current) drug therapy; Z80.0 Family history of malignant neoplasm of digestive organs; Z80.3 Family history of malignant neoplasm of breast; Z90.13 Acquired absence of bilateral breasts and nipples; Z90.710 Acquired absence of both cervix and uterus; Z87.891 Personal history of nicotine dependence
CPT/HCPCS: 20610; 77002; J1040; J3490; Q9965

== ENCOUNTER → 2021-01-24 | Outpatient (CLI) | payer MEDICARE, BC ==
[~2021-01-24] MED LIST changes: -LISI-338 PO; +LISI-517 PO; +MAGN250T10 PO
--- NOTE | 2021-01-24 09:59 | PDOC ---
Progress Note - Pain Clinic Date of Service: DOS: DATE: 01/24/21 TIME: 09:54 Diagnosis: Dx: Lumbar radiculopathy with lumbar stenosis and post lumbar laminectomy syndrome Right knee joint pain with osteoarthritis History or Present Illness: HPI: 65-year-old female returns for follow-up status post right knee joint injection as well as lumbar epidural steroid injection. Patient was doing very well at each of these with near 75% improved with the back and about 65% improvement with the knee for the past 2 months patient reports the pain in the knee is coming back now and has been just over 2 months since the last injection worse with walking weightbearing standing putting pressure on her right knee stepping on a curb or step putting off her weight on her right side. Patient ports the knee is more painful is aching sharp at times pain with weightbearing tight also better with sitting or laying down does not generally awaken her from sleep at night lower back is beginning to awaken her from sleep at night every 5-6 hours. Patient reports no loss of motor function no new bowel or bladder incontinence but feels like her balance is off when she is walking especially with the pain in her right knee. Patient rates her pain as a 6 on scale 10 is worse over the past week for an average 3 displeasing and is a 4 today. Physical Exam: VS: Pressure is 119/82 pulse 79 respiration 16 temperature 98.2 F height is 5 feet 5 inches weight is 267 pounds PE: PHYSICAL EXAMINATION: GENERAL: The patient is awake, alert, oriented, appropriate, very pleasant demeanor HEENT: Shows normocephalic, atraumatic. Extraocular movements are intact and symmetrical. Oral cavity: Mucous membranes moist and pink. Dentition is intact. NECK: Shows anterior throat supple without palpable lymphadenopathy noted. Swallow reflex symmetrical. CHEST: Shows normal on inspection. Breath sounds are clear bilaterally, no rales or rhonchi auscultated. HEART: Shows S1, S2 clear. No murmurs auscultated. ABDOMEN: Soft, nontender, nondistended, obese. No palpable organomegaly is noted. BACK: Shows spine grossly in the midline. Normal-appearing cervical lordotic curvature. There is slightly increased thoracic kyphosis, some minor flattening of the lumbar lordotic curvature. Lumbar paraspinous muscles show symmetrical on inspection, on palpation shows some moderate tenderness diffusely throughout the upper, middle and lower distribution of the paraspinous muscles, but without specific trigger points, without radiation of pain. The patient has good rotational motion of the lumbar spine, both laterally as well as extension and flexion without significant difficulty. EXTREMITIES: Lower extremities show deep tendon reflexes 1+ in the patellar and tendo calcaneus tendons. Motor exam is 4 on a scale of 5 with right dorsiflexion, extension, quadriceps and hamstring flexion and 4/5 on the left. Peripheral pulses are 1+ posterior tibial. No peripheral edema is noted bilaterally. Lower extremities are warm and dry to touch, equal in color and appearance. Patient's right knee shows significant tenderness with weightbearing with passive motion shows good rotation range of motion without crepitus or ratcheting. Patient has mild tenderness over the medial collateral ligament as opposed to the lateral but only mildly without radiation. SKIN: Shows warm and dry, good turgor. No edema. No sores, rashes or bruising throughout. Procedure: Procedure: Options discussed with the patient. Patient chart was reviewed as her current medication regimen updated current review of systems updated today as well. We will proceed with a right intra-articular knee joint injection today with fluoroscopic guidance risks discussed including but not limited to bleeding infection possibility of intravascular injection sequelae spread local anesthetic numbness side effects steroid medication special fluoroscopy and portal scarring pain control. Patient understands and wished to proceed. Patient will return to clinic in approximately 1 week for follow-up was counseled to return appointment activity level and side effects to be aware of. Medication Injected: Med Injected: Under sterile prep and drape patient's right knee was prepped and draped and under direct visual position with fluoroscopic guidance right knee joint was visualized using 1% lidocaine topically anesthetized area over the medial compartment then 22-gauge needle was used under direct fluoroscopic visualization was entered into the knee joint. Stylet was removed 1.5 cc of contrast was injected with good spread within the knee joint without washout. At this time solution of 3 cc 0.25% bupivacaine and 80 mg Depo-Medrol was then injected into the knee without difficulty. Needle was withdrawn and sterile bandage was applied. Patient tolerated procedure well had no complications. Patient return to clinic in approximate 1 week for follow-up Condition at Discharge: Condition at Discharge: Condition at discharge stable, patient already procedure well had no complications. MERRITT MERINO MD Jan 24, 2021 09:59
--- NOTE | 2021-01-24 10:00 | PDOC4 ---
PROCEDURE Procedure Patient was consented for right intra-articular knee joint injection. Risks discussed included but not limited to bleeding infection possibly of intravascular injection sequelae spread to local anesthetic and numbness exposure fluoroscopy side effects steroid medication and poor results regarding pain control. Patient understands wished to proceed. Under sterile prep and drape patient's right knee was prepped and draped and under direct visual position with fluoroscopic guidance right knee joint was visualized using 1% lidocaine topically anesthetized area over the medial compartment then 22-gauge needle was used under direct fluoroscopic visualization was entered into the knee joint. Stylet was removed 1.5 cc of contrast was injected with good spread within the knee joint without washout. At this time solution of 3 cc 0.25% bupivacaine and 80 mg Depo-Medrol was then injected into the knee without difficulty. Needle was withdrawn and sterile bandage was applied. Patient tolerated procedure well had no complications. MERRITT MERINO MD Jan 24, 2021 10:00
== END | disposition home or self-care (01) ==
LOC: PNCL 08:20
PROVIDERS: ATTEND Anesthesiology
DX: M17.11 Unilateral primary osteoarthritis, right knee (principal); M25.561 Pain in right knee; M54.16 Radiculopathy, lumbar region; M48.061 Spinal stenosis, lumbar region without neurogenic claudication; M96.1 Postlaminectomy syndrome, not elsewhere classified; E78.00 Pure hypercholesterolemia, unspecified; I10 Essential (primary) hypertension; E66.9 Obesity, unspecified; J45.909 Unspecified asthma, uncomplicated; Z90.710 Acquired absence of both cervix and uterus; Z98.890 Other specified postprocedural states; Z87.891 Personal history of nicotine dependence; Z79.82 Long term (current) use of aspirin; Z79.899 Other long term (current) drug therapy; Z72.89 Other problems related to lifestyle; Z88.8 Allergy status to other drugs, medicaments and biological substances; Z82.49 Family history of ischemic heart disease and other diseases of the circulatory system; Z80.3 Family history of malignant neoplasm of breast
CPT/HCPCS: 20610; 77002; J1040; J3490; Q9965

== ENCOUNTER → 2021-01-31 | Outpatient (CLI) | payer MEDICARE, BC ==
[~2021-01-31] MED LIST changes: -BUPIVACAINE MPF 0.25% 10 ML VIAL. ONE; -IOHEXOL 180 MG/ML 10 ML VIAL. ONE; +methylPREDNISolone ACETATE 40 MG/ML VIAL. ONE
--- NOTE | 2021-01-31 09:19 | PDOC ---
Progress Note - Pain Clinic Date of Service: DOS: DATE: 01/31/21 TIME: 09:16 Diagnosis: Dx: Lumbar radiculopathy with lumbar degenerative disease and lumbar spinal stenosis with post lumbar laminectomy syndrome Right knee joint pain with osteoarthritis History or Present Illness: HPI: 65-year-old female returns for follow-up status post right knee joint injection with 75% improvement. Patient reports he is doing much better with walking standing specially putting weight on her right leg stepping up stairs walking downstairs much greater ease and comfort her chief complaint today however is low back pain rating the bilateral posterior gluteus posterior lateral thighs lateral anterior thighs especially across the low back. Patient reports is aching sharp and tight in quality rates it is a 6 on scale 10 is worse over the past week 5 on average 3 displeasing is a 5 today. Patient reports she did very well after the first injection which was in October with about a 75% improvement with the back as well. Patient reports no new motor or sensory deficits no new bowel or bladder incontinence reports does not awaken from sleep at night initially she would do much better after the last lumbar injection with distance walking doing household activities travel with greater ease and comfort as well. Physical Exam: VS: Blood pressure is 149/73 pulse 79 respirations 18; temperature is 98 .3 F height is 5 feet 5 inches weight is 275 pounds PE: PHYSICAL EXAMINATION: GENERAL: The patient is awake, alert, oriented, appropriate, very pleasant demeanor HEENT: Shows normocephalic, atraumatic. Extraocular movements are intact and symmetrical. Oral cavity: Mucous membranes moist and pink. Dentition is intact. NECK: Shows anterior throat supple without palpable lymphadenopathy noted. Swallow reflex symmetrical. CHEST: Shows normal on inspection. Breath sounds are clear bilaterally, no rales or rhonchi. HEART: Shows S1, S2 clear. No murmurs auscultated. ABDOMEN: Soft, nontender, nondistended, obese. No palpable organomegaly is noted. BACK: Shows spine grossly in the midline. Normal-appearing cervical lordotic curvature. There is slightly increased thoracic kyphosis, some minor flattening of the lumbar lordotic curvature. Lumbar paraspinous muscles show symmetrical on inspection, on palpation shows some moderate tenderness diffusely throughout the upper, middle and lower distribution of the paraspinous muscles without specific trigger points, without radiation of pain. The patient has good rotational motion of the lumbar spine, both laterally as well as extension and flexion without significant difficulty. EXTREMITIES: Lower extremities show deep tendon reflexes 1+ in the patellar and tendo calcaneus tendons. Motor exam is 4 on a scale of 5 with right dorsiflexion, extension, quadriceps and hamstring flexion and 4/5 on the left. Peripheral pulses are 1+ posterior tibial. No peripheral edema is noted bilaterally. Lower extremities are warm and dry to touch, equal in color and appearance. SKIN: Shows warm and dry, good turgor. No edema. No sores, rashes or bruising throughout. Procedure: Procedure: Options were discussed with the patient. Patient chart reviews her current medication regimen updated current review of systems updated today as well. We will proceed with a second in a series lumbar epidural steroid injection today with fluoroscopic guidance. Risks were discussed including but not limited to: Bleeding, infection, possibility of epidural hematoma and subsequent neurological compromise, dural puncture, headaches, spinal cord and/or nerve damage, side effects of steroid medication, and poor results regarding pain control. Patient understands and wished to proceed. Patient return to clinic in approximate 2 weeks for follow-up, was counseled as to return appointment activity level and side effects to be aware of. Medication Injected: Med Injected: Procedure is lumbar epidural steroid injection under local anesthetic using sterile prep and drape at the L4-5 level using C-arm fluoroscopic guidance in both AP and lateral views medications injected is 120 mg Depo-Medrol + 10 mL preservative-free normal saline and 2 mL contrast- condition at discharge is stable patient tolerated procedure well had no complications. Condition at Discharge: Condition at Discharge: Condition at discharge stable, patient tolerated procedure well and had no complications. MERRITT MERINO MD Jan 31, 2021 09:19
--- NOTE | 2021-01-31 09:19 | PDOC4 ---
PROCEDURE Procedure Patient was consented for lumbar epidural steroid injection. Risks were dis cussed including but not limited to: Bleeding, infection, possibility of epidural hematoma and subsequent neurological compromise, dural puncture, headaches, spinal cord and/or nerve damage, side effects of steroid medication, and poor results regarding pain control. Patient understands and wished to proceed. Procedure is lumbar epidural steroid injection under local anesthetic using sterile prep and drape at the L4-5 level using C-arm fluoroscopic guidance in both AP and lateral views medications injected is 120 mg Depo-Medrol + 10 mL preservative-free normal saline and 2 mL contrast- condition at discharge is stable patient tolerated procedure well had no complications. MERRITT MERINO MD Jan 31, 2021 09:19
== END | disposition home or self-care (01) ==
LOC: PNCL 08:46
PROVIDERS: ATTEND Anesthesiology
DX: M51.16 Intervertebral disc disorders with radiculopathy, lumbar region (principal); M48.061 Spinal stenosis, lumbar region without neurogenic claudication; M96.1 Postlaminectomy syndrome, not elsewhere classified; M17.11 Unilateral primary osteoarthritis, right knee; I10 Essential (primary) hypertension; E78.00 Pure hypercholesterolemia, unspecified; J45.909 Unspecified asthma, uncomplicated; E66.9 Obesity, unspecified; M19.90 Unspecified osteoarthritis, unspecified site; Z90.710 Acquired absence of both cervix and uterus; Z98.890 Other specified postprocedural states; Z79.899 Other long term (current) drug therapy; Z85.3 Personal history of malignant neoplasm of breast; Z72.89 Other problems related to lifestyle; Z87.891 Personal history of nicotine dependence; Z79.82 Long term (current) use of aspirin; Z88.8 Allergy status to other drugs, medicaments and biological substances
CPT/HCPCS: 62323; J1030; J1040; 77002

== ENCOUNTER → 2021-05-07 | Outpatient (CLI) | payer MEDICARE, BC ==
[~2021-05-07] MED LIST changes: +CONTRAST GIVEN. MC PRN; +IOHEXOL 180 MG/ML 10 ML VIAL. IT ONE; +LIDOCAINE 1% Multi-Dose 20 ML VIAL. ID ONE; -methylPREDNISolone ACETATE 40 MG/ML VIAL. ONE; -methylPREDNISolone ACETATE 80 MG/ML VIAL. ONE
--- NOTE | 2021-05-07 17:13 | KCIC ---
Lumbar spine AP, lateral neutral, flexion and extension x-rays HISTORY: Lumbar radiculopathy. FINDINGS: Rotatory dextroconvex lumbar scoliosis. There are bulky left lateral disc osteophytes at L1 -L2 and L2-L3 on the left. Lumbar vertebral body height grossly intact. There is mild grade 1 retroli sthesis of L3 on L4 in neutral position which is stable with flexion and extension. No fracture evide nt. There is marked disc space loss and bony sclerosis and disc osteophytes at L1-L2, L2-L3 and L3-L4 with lesser disc space narrowing at L4-L5 and L5-S1. Facet sclerosis and spurring of the lower lumba r spine. IMPRESSION: Lumbar scoliosis and changes of degenerative disc disease and facet arthrosis as describe d above. There is mild grade 1 retrolisthesis of L3 on L4 which is stable with flexion and extension. Electronically signed by: Derrell Diamond MD (05/07/2021 5:10 PM) [id number]
--- NOTE | 2021-05-07 17:18 | KCIC ---
PROCEDURE: FLUOROSCOPICALLY GUIDED LUMBAR MYELOGRAM CLINICAL HISTORY: The patient is a 65 years old Female who presented with low back pain, radiculopath y, and lower extremity weakness. CONSENT: The risks, benefits, treatment options, potential complications and personnel to be involved were discussed (including the risks of radiation exposure, instruments to be used, contrast and anes thesia administration) with the patient. All questions were answered and consent was obtained. The pa tient indicated willingness to proceed. GENERAL: - Medication Reconciliation: The patient's medications and allergies were reviewed and reconciled to the proposed procedure/treatment. - Pre-procedure Sign-in: Safety Checklist Performed Yes - Positioning: The patient was placed Prone on the fluoroscopy table. - The lower back was then sterilely prepped and draped. - Time Out: A time out was performed immediately prior to procedure start with the nursing, anesthesi a and interventional team, correctly identifying the patient name, date of , procedure, anatomy (including marking of site and side), patient position, procedure consent form, relevant diagnostic a nd radiology test results, antibiotic administration, safety precautions, and procedure-specific equi pment needs. - Procedure Start Time / Timeout Time: 10:00 - Anesthesia Type: Local anesthesia: 4 mL 1% Lidocaine PROCEDURE: - Access Site: 22 gauge spinal needle from a right paramedian approach at the level of L4-L5. - Procedure Details: -- Myelogram: Under fluoroscopic guidance, the needle was advanced into the lumbar subarachnoid space with location confirmed by CSF return. 12 mL of Omnipaque 180 Intrathecal contrast was administered. -- Myelogram Type: Lumbar - Estimated Blood Loss: 0 mL - Fluoroscopic Radiation Summary: -- Fluoroscopy Time: 1:42 min:sec -- Number of Images: 2 POST-PROCEDURE: - Hemostasis: Hemostasis was achieved using light manual compression. - Sign-out: Communication Performed Yes - Conclusion: The patient tolerated the procedure well with no immediate complications. IMPRESSION: Successful fluoroscopically guided lumbar myelogram. Electronically signed by: Zack Ojeda DO (05/07/2021 5:15 PM) [id number]
--- NOTE | 2021-05-07 17:44 | KCIC ---
EXAMINATION: CT LUMBAR SPINE W (CT LUMBAR MYELOGRAM) CLINICAL HISTORY: Low back pain with radiculopathy and lower extremity weakness. History of L4 paty ctomy. TECHNIQUE: Spiral, high resolution axial images were obtained from the thoracolumbar junction to the sacrum following the injection of intrathecal contrast with subsequent sagittal and coronal planar re constructions. Procedural portion of the myelogram reported separately. CT Dose Reduction Employed: One or more of the following individualized dose reduction techniques wer e utilized for this examination: 1. Automated exposure control 2. Adjustment of the mA and/or kV ac cording to patient size 3. Use of iterative reconstruction technique. COMPARISON: L-spine radiographs same day, MRI L-spine 09/21/2020 FINDINGS: Partially visualized thoracolumbar curvature. Postoperative changes related to L4 laminectomy. No evidence of acute fracture or suspicious destruct tc osseous lesion. Grade 1 L3-4 retrolisthesis, likely degenerative in similar to prior study. Multi level endplate degenerative changes with prominent osteophytes in the mid to upper lumbar spine and m ultiple small Schmorl's nodes. Multilevel moderate to severe facet arthropathy, greatest in the lower lumbar spine. Moderate to severe multilevel disc space narrowing in the mid to upper lumbar spine, greatest at L2-3 and L3-4. Multilevel vacuum disc phenomenon. L5-S1 disc calcification anteriorly. L3-4 High-grade sp inal stenosis at L4-5 with ill-defined hypodensity near completely occluding the spinal canal. High-g rade spinal stenosis at L3-4 with only mild opacification of the spinal canal visualized. Multilevel neural foraminal narrowing: L1-2 mild bilaterally, L2-3 mild on the right and moderate on the left, L 3-4 severe bilaterally, L4-5 severe on the right and moderate on the left, L5-S1 mild bilaterally. Paraspinal soft tissues unremarkable. Arterial atherosclerotic calcification. IMPRESSION: High-grade spinal stenosis at L4-5 and to a slightly lesser extent at L3-4 as described. Multilevel neural foraminal narrowing as described, greatest at L3-4. Moderate to severe multilevel disc space narrowing in the mid to upper lumbar spine, greatest at L2-3 and L3-4. Additional nonacute findings as described. Electronically signed by: Zack Ojeda DO (05/07/2021 5:42 PM) [id number]
== END | disposition home or self-care (01) ==
LOC: KCIC 08:59
PROVIDERS: ATTEND Neurological Surgery
DX: M51.16 Intervertebral disc disorders with radiculopathy, lumbar region (principal); M41.86 Other forms of scoliosis, lumbar region; M48.061 Spinal stenosis, lumbar region without neurogenic claudication; I10 Essential (primary) hypertension; E78.00 Pure hypercholesterolemia, unspecified; J45.909 Unspecified asthma, uncomplicated; E66.9 Obesity, unspecified; M19.90 Unspecified osteoarthritis, unspecified site; Z85.3 Personal history of malignant neoplasm of breast; Z90.710 Acquired absence of both cervix and uterus; Z98.890 Other specified postprocedural states; Z79.899 Other long term (current) drug therapy; Z87.891 Personal history of nicotine dependence; Z79.82 Long term (current) use of aspirin; Z72.89 Other problems related to lifestyle; Z88.8 Allergy status to other drugs, medicaments and biological substances; Z82.49 Family history of ischemic heart disease and other diseases of the circulatory system
CPT/HCPCS: 62304; 72110; 72132; J3490; Q9965

== ENCOUNTER → 2021-05-15 | Outpatient (CLI) | payer MEDICARE, BC ==
[~2021-05-15] MED LIST changes: +BUPIVACAINE MPF 0.25% 10 ML VIAL. ONE; -CONTRAST GIVEN. MC PRN; -IOHEXOL 180 MG/ML 10 ML VIAL. IT ONE; +IOHEXOL 180 MG/ML 10 ML VIAL. ONE; -LIDOCAINE 1% Multi-Dose 20 ML VIAL. ID ONE; +methylPREDNISolone ACETATE 80 MG/ML VIAL. ONE
--- NOTE | 2021-05-15 09:40 | PDOC4 ---
PROCEDURE Procedure Patient was consented for a right intra-articular knee joint injection with fluoroscopic guidance. Risk were discussed including but not limited to bleeding infection possibility of intravascular injection and sequelae spread of local anesthetic and numbness side effects of steroid medication, and poor results regarding pain control. Patient understands wished to proceed. Under sterile prep and drape patient in supine position using C-arm fluoroscopic guidance patient's right knee was sterilely prepped and draped in usual fashion. Using C-arm fluoroscopy the medial aspect of the knee joint was identified and visualized and using 1% lidocaine 25-gauge needle of the area of the skin overlying the medial knee compartment was anesthetized. Using a 22-gauge quickie needle with stylette the joint was entered under direct visualization without difficulty. Stylet was removed at this time 1.5 cc of contrast was then injected with good spread within the knee joint itself without washout or uptake. At this time solution containing 3 cc of 0.25 bupivacaine and 80 mg of Depo-Medrol, were then injected. Needle was withdrawn and sterile bandage was applied. Patient tolerated procedure well and had no complications. MERRITT MERINO MD May 15, 2021 09:40
--- NOTE | 2021-05-15 09:40 | PDOC ---
Progress Note - Pain Clinic Date of Service: DOS: DATE: 05/15/21 TIME: 09:34 Diagnosis: Dx: Lumbar radiculopathy with lumbar degenerative disease lumbar spinal stenosis and post lumbar laminectomy syndrome Right knee joint pain with osteoarthritis History or Present Illness: HPI: 65-year-old female returns for follow-up status post lumbar epidural steroid injections x2. Patient reports about 60% improvement for about a month and is scheduled to have lumbar spinal fusion in about a month from now. Patient had recent myelogram which we discussed with her as well today and she has it scheduled with her neurosurgeon. Patient reports her chief complaint today is right knee pain she has had this for some time but is beginning to be more noticeable is getting worse she has had her left knee replaced but the right knee is becoming much more painful patient is apprehensive as to pursuing any replacement surgery as she is worried because he uses her right knee predominantly. Patient rates the pain a 7 on scale 10 is worse with past week 5 on average 4-6 is a 5 today patient describes as aching sometimes sharp worse with weightbearing standing walking much better with sitting or lying down wakes her from sleep occasionally but not any more than once every 6 hours or so. Patient reports no new motor or sensory deficits but significant pain with putting all the weight on the right leg such as climbing on a stair or step or standing with weight on her right leg. Physical Exam: VS: Blood pressure is 143/85 pulse 80 respirations 18 temperature 98.3 F height is 5 feet 5 inches weight is 273 pounds PE: PHYSICAL EXAMINATION: GENERAL: The patient is awake, alert, oriented, appropriate, very pleasant in demeanor HEENT: Shows normocephalic, atraumatic. Extraocular movements are intact and symmetrical. NECK: Shows anterior throat supple without palpable lymphadenopathy noted. Swallow reflex symmetrical. CHEST: Shows normal on inspection. Breath sounds are clear bilaterally. HEART: Shows S1, S2 clear. No murmurs auscultated. ABDOMEN: Soft, nontender, nondistended, obese. BACK: Shows spine grossly in the midline. Normal-appearing cervical lordotic curvature. There is slightly increased thoracic kyphosis, some minor flattening of the lumbar lordotic curvature. Lumbar paraspinous muscles show symmetrical on inspection, on palpation shows some moderate tenderness diffusely throughout the upper, middle and lower distribution of the paraspinous muscles, but without specific trigger points, without radiation of pain. The patient has good rotational motion of the lumbar spine, both laterally as well as extension and flexion without significant difficulty. EXTREMITIES: Lower extremities show deep tendon reflexes 1+ in the patellar and tendo calcaneus tendons. Motor exam is full on a scale of 5 with right dorsiflexion, extension, quadriceps and hamstring flexion and 4/5 on the left. Peripheral pulses are 1 posterior tibial. No peripheral edema is noted bilaterally. Lower extremities are warm and dry. Patient's right knee shows good range of motion without crepitus or ratcheting, with tenderness over the medial compartment greater than the lateral compartment but without displacement or increased pain with patellar manipulation. SKIN: Shows warm and dry, good turgor. No edema. No sores, rashes or bruising throughout. Procedure: Procedure: Options were discussed with patient. Patient chart reviews her current medication regimen updated current review of systems updated today as well. We will proceed with a right intra-articular knee joint injection today with fluoroscopic guidance. Risk were discussed including but not limited to bleeding infection possibility of intravascular injection sequelae spread of local anesthetic numbness side effects of steroid medication exposure fluoroscopy and poor results regarding pain control. Patient understands wished to proceed. Patient will return to clinic in approximately 4 weeks for follow- up, was counseled as return appointment activity level and side effects to be aware. Medication Injected: Med Injected: Under sterile prep and drape patient in supine position using C-arm fluoroscopic guidance patient's right knee was sterilely prepped and draped in usual fashion. Using C-arm fluoroscopy the medial aspect of the knee joint was identified and visualized and using 1% lidocaine 25-gauge needle of the area of the skin overlying the medial knee compartment was anesthetized. Using a 22-gauge quickie needle with stylette the joint was entered under direct visualization without difficulty. Stylet was removed at this time 1.5 cc of contrast was then injected with good spread within the knee joint itself without washout or uptake. At this time solution containing 3 cc of 0.25 bupivacaine and 80 mg of Depo-Medrol, were then injected. Needle was withdrawn and sterile bandage was applied. Patient tolerated procedure well and had no complications. Condition at Discharge: Condition at Discharge: Condition at discharge stable, patient alert the procedure well and had no complications. MERRITT MERINO MD May 15, 2021 09:40
== END | disposition home or self-care (01) ==
LOC: PNCL 08:23
PROVIDERS: ATTEND Anesthesiology
DX: M17.11 Unilateral primary osteoarthritis, right knee (principal); M51.16 Intervertebral disc disorders with radiculopathy, lumbar region; M48.061 Spinal stenosis, lumbar region without neurogenic claudication; M96.1 Postlaminectomy syndrome, not elsewhere classified; I10 Essential (primary) hypertension; E78.00 Pure hypercholesterolemia, unspecified; J45.909 Unspecified asthma, uncomplicated; E66.9 Obesity, unspecified; Z85.3 Personal history of malignant neoplasm of breast; Z90.710 Acquired absence of both cervix and uterus; Z98.890 Other specified postprocedural states; Z79.899 Other long term (current) drug therapy; Z87.891 Personal history of nicotine dependence; Z79.82 Long term (current) use of aspirin; Z88.8 Allergy status to other drugs, medicaments and biological substances
CPT/HCPCS: 20610; 77002; J1040; J3490; Q9965

== ENCOUNTER → 2021-05-24 | Outpatient (CLI) | payer MEDICARE, BC ==
[~2021-05-24] MED LIST changes: -BUPIVACAINE MPF 0.25% 10 ML VIAL. ONE; +DICL100G24 TP; -DICL150D4 TP; +DICL150D9 TP; -IOHEXOL 180 MG/ML 10 ML VIAL. ONE; +METH-562 PO; +SENN1TAB62 PO; -methylPREDNISolone ACETATE 80 MG/ML VIAL. ONE
[2021-05-24 14:30] LABS: BASO % 1 % (0-3); EOS # 0.2 x10^3/uL (0.0-0.7); EOS % 3 % (0-3); HEMATOCRIT 39.7 % (36.0-47.0); HEMOGLOBIN 13.1 g/dL (12.0-15.5); LYMPH # 2.5 x10^3/uL (1.0-4.8); LYMPH % 38 % (24-48); MEAN CORPUSCULAR HEMOGLOBIN 29 pg (25-35); MEAN CORPUSCULAR HGB CONC 33 g/dL (31-37); MEAN CORPUSCULAR VOLUME 89 fL (79-100); MONO # 0.5 x10^3/uL (0.0-1.1); MONO % 7 % (0-9); NEUT # 3.4 x10^3/uL (1.8-7.7); NEUT % 52 % (31-73); PLATELET COUNT 250 x10^3/uL (140-400); RED BLOOD COUNT 4.46 x10^6/uL (3.50-5.40); RED CELL DISTRIBUTION WIDTH 13.3 % (11.5-14.5); WHITE BLOOD COUNT 6.7 x10^3/uL (4.0-11.0)
[2021-05-24 14:39] LABS: PROTHROMBIN TIME PATIENT 12.6 SEC (11.7-14.0)
[2021-05-25 04:10] LABS: HEMOGLOBIN A1C 5.1 % (4.8-5.6)
== END ==
LOC: SURGPAT 13:32
PROVIDERS: ATTEND Neurological Surgery
DX: Z01.818 Encounter for other preprocedural examination (principal); M47.26 Other spondylosis with radiculopathy, lumbar region; Z79.899 Other long term (current) drug therapy; R19.7 Diarrhea, unspecified; R10.9 Unspecified abdominal pain
CPT/HCPCS: 36415; 83036; 85025; 85610; 85730; 87641

== ENCOUNTER → 2021-05-31 | Outpatient (CLI) | payer MEDICARE, BC ==
[2021-05-29 12:09] VITALS: BP 135/63
[~2021-05-31] MED LIST changes: -LISI-517 PO; +LISI5TAB15 PO; +TIZA-75 PO; -TIZA4TAB2 PO
--- NOTE | 2021-05-31 14:50 | KCIC ---
Right breast digital screening mammograms with 3-D tomosynthesis: Reason for examination: Routine screening. History of left breast cancer with mastectomy. Comparison is made to previous studies dated back to 02/14/2017. Right breast mammograms in CC and oblique projections were obtained with 2-D imaging and 3-D tomosynt hesis imaging on a Siemens Inspiration unit and reviewed on the workstation. Interpretation was made with the benefit of CAD. The skin and nipple show no abnormalities. No abnormal axillary lymph nodes are seen. The breast pare nchyma shows scattered fatty and fibroglandular density. (Breast density: Category B.) There are no d ominant masses, suspicious calcifications or architectural distortion. Benign calcifications are pres ent. Impression: No evidence of malignancy. Recommend routine screening. BI-RAD Category 2: Benign. "Our facility is accredited by the [employer] Mammography Program." This patient's information has been entered into a reminder system for the patient to be notified wit h the results of her examination and a target date for the next mammogram. Electronically signed by: Minerva Del Valle MD (05/31/2021 2:48 PM) [id number]
== END ==
LOC: KCIC MAMMO 10:37
PROVIDERS: ATTEND Physician Assistant Medical
DX: Z12.31 Encounter for screening mammogram for malignant neoplasm of breast (principal)
CPT/HCPCS: 77063; 77067

== ENCOUNTER → 2021-08-15 | Outpatient (CLI) | payer MEDICARE, BC ==
[2021-07-04 11:33] VITALS: BP 108/62
[~2021-08-15] MED LIST changes: +BUPIVACAINE MPF 0.25% 10 ML VIAL. ONE; +IOHEXOL 180 MG/ML 10 ML VIAL. ONE; +LISI-517 PO; -LISI5TAB15 PO; -TIZA-75 PO; +TIZA4TAB2 PO; +methylPREDNISolone ACETATE 80 MG/ML VIAL. ONE
--- NOTE | 2021-08-15 08:26 | PDOC ---
Progress Note - Pain Clinic Date of Service: DOS: DATE: 08/15/21 TIME: 08:18 Diagnosis: Dx: Right knee joint pain with osteoarthritis Lumbar radiculopathy with lumbar degenerative disease lumbar spinal stenosis and post lumbar laminectomy syndrome History or Present Illness: HPI: 65-year-old female returns for follow-up status post right knee joint injection May 15, 2021 patient reports did very well with Kris 75% improvement initially now down about 50% improvement over the past month the pain is beginning to get more noticeable in the right knee. Patient reports is worse with walking standing putting all of her weight on her right leg such as climbing stairs or steps or standing on her right leg patient reports is worse in the morning but gets worse with activity during the day as well. Patient reports generally does not awaken her from sleep at night and is better with resting sitting or laying down. Patient reports she has some pain in the left knee now which has been replaced but this is new as she has not had this previously even with compensating for the right knee in the past. Patient reports that she feels that the pain had improved significantly after her back surgery but now has numbness and tingling in the right foot. Patient reports a 6 on scale 10 is worse over the past week 3 on average to its least is a 3 today describes aching sharp at times and dull mostly sharp when she is putting weight on it and pressure with walking standing or stairs. Patient reports no new motor or sensory deficits no bowel or bladder incontinence. Patient reports that her lumbar decompression surgery went very well and the back is feeling much better also. Physical Exam: VS: Blood pressure is 149/83 pulse 93 respirations 18 temperature 98.9 F height is 5 feet 5 inches weight is 274 pounds PE: PHYSICAL EXAMINATION: GENERAL: The patient is awake, alert, oriented, appropriate, very pleasant in demeanor HEENT: Shows normocephalic, atraumatic. Patient wearing hearing aids extra ocular movements are intact and symmetrical. Oral cavity: Mucous membranes moist and pink. Dentition is intact. NECK: Shows anterior throat supple without palpable lymphadenopathy noted. Swallow reflex symmetrical. CHEST: Shows normal on inspection. Breath sounds are clear bilaterally, distant but no rales rhonchi or wheezes auscultated. HEART: Shows S1, S2 clear. No murmurs auscultated. ABDOMEN: Soft, nontender, nondistended, obese. No palpable organomegaly is noted. BACK: Shows spine grossly in the midline. Normal-appearing cervical lordotic curvature. There is slightly increased thoracic kyphosis, some minor flattening of the lumbar lordotic curvature. Lumbar paraspinous muscles show symmetrical on inspection, on palpation shows some moderate tenderness diffusely throughout the upper, middle and lower distribution of the paraspinous muscles without specific trigger points, without radiation of pain. The patient has good rotational motion of the lumbar spine, both laterally as well as extension and flexion without significant difficulty. EXTREMITIES: Lower extremities show deep tendon reflexes 1+ in the patellar and tendo calcaneus tendons. Motor exam is 4 on a scale of 5 with right dorsiflexion, extension, quadriceps and hamstring flexion and 4/5 on the left. Peripheral pulses are 1+ posterior tibial. No peripheral edema is noted bilaterally. Lower extremities are warm and dry. Patient's knee shows well- healed surgical scar over the left knee, right knee shows tenderness with palpation over the medial collateral ligament as well as the lateral collateral ligament but without ratcheting or crepitus with joint motion and full range of motion both passively and actively. SKIN: Shows warm and dry, good turgor. No edema. No sores, rashes or bruising throughout. Procedure: Procedure: Options were discussed with the patient. Patient chart reviews her current medication regimen updated current review of systems updated today as well. We will proceed with a right intra-articular knee joint injection today with fluoroscopic guidance. Risk were discussed including but not limited to bleeding infection possibility of intravascular injection sequelae spread local anesthetic numbness side effects steroid medications post arthroscopy and portals regarding pain control. Patient understands wished to proceed. Patient return to clinic in approximately 4 weeks for follow-up, we did discuss potential Synvisc injection if pain returns in the future. Patient will consider this as well. Medication Injected: Med Injected: Under sterile prep and drape patient in supine position using C-arm fluoroscopic guidance patient's right knee was sterilely prepped and draped in usual fashion. Using C-arm fluoroscopy the medial aspect of the knee joint was identified and visualized and using 1% lidocaine 25-gauge needle of the area of the skin overlying the medial knee compartment was anesthetized. Using a 22-gauge quickie needle with stylette the joint was entered under direct visualization without difficulty. Stylet was removed at this time 1.5cc of contrast was then injected with good spread within the knee joint itself without washout or uptake. At this time solution containing 3 cc of 0.25 bupivacaine and 80 mg Depo-Medrol was injected. Needle was withdrawn and sterile bandage was applied. Patient tolerated procedure well and had no complications. Condition at Discharge: Condition at Discharge: Condition at discharge is stable, patient alert the procedure well and had no complications. MERRITT MERINO MD Aug 15, 2021 08:26
--- NOTE | 2021-08-15 08:27 | PDOC4 ---
Procedure Note: ICD 10 Code: ICD 10 Code: M2 5.561 M1 7.11 Procedure Note: Patient was consented for right intra-articular knee joint injection with fluoroscopic guidance. Risk were discussed including but not limited to bleeding infection possibility of intravascular injection sequelae spread local anesthetic numbness side effects steroid medications post nephroscopy and poor results from pain control. Patient understands and wishes to proceed. Under sterile prep and drape patient in supine position using C-arm fluoroscopic guidance patient's right knee was sterilely prepped and draped in usual fashion. Using C-arm fluoroscopy the medial aspect of the knee joint was identified and visualized and using 1% lidocaine 25-gauge needle of the area of the skin overlying the medial knee compartment was anesthetized. Using a 22-gauge quickie needle with stylette the joint was entered under direct visualization without difficulty. Stylet was removed at this time 1.5cc of contrast was then injected with good spread within the knee joint itself without washout or uptake. At this time solution containing 3 cc of 0.25 bupivacaine and 80 mg Depo-Medrol was injected. Needle was withdrawn and sterile bandage was applied. Patient tolerated procedure well and had no complications. MERRITT MERINO MD Aug 15, 2021 08:27
== END | disposition home or self-care (01) ==
LOC: PNCL 07:50
PROVIDERS: ATTEND Anesthesiology
DX: M17.11 Unilateral primary osteoarthritis, right knee (principal); M25.561 Pain in right knee; M51.16 Intervertebral disc disorders with radiculopathy, lumbar region; M48.061 Spinal stenosis, lumbar region without neurogenic claudication; M96.1 Postlaminectomy syndrome, not elsewhere classified; I10 Essential (primary) hypertension; E78.00 Pure hypercholesterolemia, unspecified; E66.9 Obesity, unspecified; J45.909 Unspecified asthma, uncomplicated; Z85.3 Personal history of malignant neoplasm of breast; Z79.82 Long term (current) use of aspirin; Z79.899 Other long term (current) drug therapy; Z90.710 Acquired absence of both cervix and uterus; Z98.890 Other specified postprocedural states; Z87.891 Personal history of nicotine dependence; Z72.89 Other problems related to lifestyle; Z88.8 Allergy status to other drugs, medicaments and biological substances
CPT/HCPCS: 20610; 77002; J1040; J3490; Q9965

== ENCOUNTER → 2021-08-17 | Outpatient (CLI) | payer MEDICARE, BC ==
[2021-07-04 11:33] VITALS: BP 108/62
[~2021-08-17] MED LIST changes: -BUPIVACAINE MPF 0.25% 10 ML VIAL. ONE; -IOHEXOL 180 MG/ML 10 ML VIAL. ONE; -methylPREDNISolone ACETATE 80 MG/ML VIAL. ONE
--- NOTE | 2021-08-17 17:33 | KCIC ---
Three-view lumbar spine series Clinical indications: Status post laminectomy. Muscle weakness. FINDINGS: Rotatory dextroscoliosis is seen. There is right lateral subluxation of L3 and L4 of 12 mm. Bilateral transpedicular screws are seen at L4 and L5 connected by 2 vertical metallic stabilizer ba rs. Laminectomy of L3 and L4 is seen. Grade 1 anterolisthesis of L4-5 is evident. No compression frac ture or discitis or lytic process is evident. IMPRESSION: L4-5 fusion. No acute compression fracture. Electronically signed by: Feng Gomez MD (08/17/2021 5:31 PM) [id number]
== END ==
LOC: KCIC 14:00
PROVIDERS: ATTEND Neurological Surgery
DX: S33.130A Subluxation of L3/L4 lumbar vertebra, initial encounter (principal); M41.86 Other forms of scoliosis, lumbar region; X58.XXXA Exposure to other specified factors, initial encounter; Y93.89 Activity, other specified; Y92.89 Other specified places as the place of occurrence of the external cause; Y99.8 Other external cause status
CPT/HCPCS: 72100

== ENCOUNTER → 2021-10-08 | Outpatient (CLI) | payer MEDICARE, BC ==
[2021-07-04 11:33] VITALS: BP 108/62
[~2021-10-08] MED LIST changes: -LISI-517 PO; +LISI5TAB15 PO; +TIZA-75 PO; -TIZA4TAB2 PO
--- NOTE | 2021-10-08 11:33 | KCIC ---
EXAM: Lumbar spine, 2 views. HISTORY: Laminectomy. COMPARISON: None. FINDINGS: 2 views of the lumbar spine are obtained. There is instrumented posterior spinal fusion and laminectomy decompression at L4-L5. There is rotatory dextroscoliosis centered at L3. There is right post lateral translation of L3 on L4 and L2 on L1. There is mild retrolisthesis of L3 on L4. There is grade 1 anterolisthesis of L4 on L5. There is multilevel endplate remodeling with disc space narrowi ng and osteophytosis, primarily along the left aspect of L3-L4 and L2-L3. This corresponds with the l evels of maximum scoliotic concavity. There is a gastric lap band within the [id number]. IMPRESSION: 1. Instrumented posterior spinal fusion and laminectomy decompression at L4-L5. 2. Multilevel degenerative changes and rotatory scoliosis with multilevel listhesis, described above. Electronically signed by: Isi Segovia MD (10/08/2021 11:31 AM) [id number]
== END ==
LOC: KCIC 11:14
PROVIDERS: ATTEND Neurological Surgery
DX: M47.816 Spondylosis without myelopathy or radiculopathy, lumbar region (principal); M41.86 Other forms of scoliosis, lumbar region; M48.061 Spinal stenosis, lumbar region without neurogenic claudication
CPT/HCPCS: 72100

== ENCOUNTER → 2021-11-05 | Outpatient (CLI) | payer MEDICARE, BC ==
[2021-07-04 11:33] VITALS: BP 108/62
[~2021-11-05] MED LIST changes: +HYLAN G-F 20 48 MG/6 ML SYRINGE INT ART ONE; +IOHEXOL 180 MG/ML 10 ML VIAL. ONE
--- NOTE | 2021-11-05 10:28 | PDOC ---
Progress Note - Pain Clinic Date of Service: DOS: DATE: 11/05/21 TIME: 10:24 Diagnosis: Dx: Right knee joint pain with osteoarthritis Lumbar radiculopathy lumbar degenerative disc disease lumbar spinal stenosis and lumbar postlaminectomy syndrome History or Present Illness: HPI: 66-year-old female returns after lumbar epidural steroid injection with very good results about 50% improvement with right knee pain had right knee injection with corticosteroid about 70% improvement in July of this year patient reports pain significant and returning we discussed Synvisc for use as she has good results but limited with the steroid injections patient still complains of pain in the right knee with walking standing weightbearing putting all of her weight on her right leg that is climbing on a stair step or standing for prolonged. Patient rates as a 5 on scale 10 is worse over the past week for an average 3 distillation is a 4 today patient was aching and sharp swelling feeling in the medial aspect more than the posterior lateral aspect again worse only with weightbearing with sitting or laying down patient reports the pain is essentially taking care of and sleeps well at night without the pain disturbing her most nights. Physical Exam: VS: Blood pressure is 150/92 pulse 76 respirations 18 temperature is 98.2 F height is 5 feet 5 inches weight is 279 pounds PE: PHYSICAL EXAMINATION: GENERAL: The patient is awake, alert, oriented, appropriate, very pleasant in demeanor HEENT: Shows normocephalic, atraumatic. Extraocular movements are intact and symmetrical. Oral cavity: Mucous membranes moist and pink. Dentition is intact. NECK: Shows anterior throat supple without palpable lymphadenopathy noted. Swallow reflex symmetrical. CHEST: Shows normal on inspection. Breath sounds are clear bilaterally. HEART: Shows S1, S2 clear. No murmurs auscultated. ABDOMEN: Soft, nontender, nondistended. No palpable organomegaly is noted. BACK: Shows spine grossly in the midline. Normal-appearing cervical lordotic curvature. There is slightly increased thoracic kyphosis, some minor flattening of the lumbar lordotic curvature. Lumbar paraspinous muscles show symmetrical on inspection, on palpation shows some moderate tenderness diffusely throughout the upper, middle and lower distribution of the paraspinous muscles without specific trigger points, without radiation of pain. The patient has good rotational motion of the lumbar spine, both laterally as well as extension and flexion without significant difficulty. EXTREMITIES: Lower extremities show deep tendon reflexes 1 in the patellar and tendo calcaneus tendons. Motor exam is 4 on a scale of 5 with right dorsiflexion, extension, quadriceps and hamstring flexion and 4/5 on the left. Peripheral pulses are 1 posterior tibial. No peripheral edema is noted bilaterally. Lower extremities are warm and dry to touch, equal in color and appearance. Patient's right knee shows significant tenderness over the medial collateral ligament with palpation also in the medial aspect of the patella without displacement and without ratcheting or crepitus on range of motion with good hinge motion bilaterally. SKIN: Shows warm and dry, good turgor. No edema. No sores, rashes or bruising throughout. Procedure: Procedure: Options were discussed with patient. Patient old chart was reviewed, her current medication regimen updated current review of systems updated today as well. We will proceed with a Synvisc 1 injection right knee with fluoroscopic guidance. Risks were discussed including not limited bleeding infection possibly intravascular injection sequelae and portals regarding pain control. Patient understands wished to proceed. Patient will return to the clinic in approximately 1 month for follow-up, was counseled as return appointment, activity level, and side effects beware of. Medication Injected: Med Injected: Under sterile prep and drape patient in supine position using C-arm fluoroscopic guidance patient's right knee was sterilely prepped and draped in usual fashion. Using C-arm fluoroscopy the medial aspect of the knee joint was identified and visualized and using 1% lidocaine 25-gauge needle of the area of the skin overlying the medial knee compartment was anesthetized. Using a 22-gauge quickie needle with stylette the joint was entered under direct visualization without difficulty. Stylet was removed at this time 1.5 cc of contrast was then injected with good spread within the right knee joint itself without washout or uptake. At this time aspiration was performed with removal of synovial fluid approximately 3 cc, at this time Synvisc 1, 6 cc was injected into the knee joint without difficulty or resistance. Sterile bandage was applied patient tolerated procedure well and had no complications. Condition at Discharge: Condition at Discharge: Condition at discharge stable, patient Kayode the procedure well and had no complications. MERRITT MERINO MD Nov 05, 2021 10:28
--- NOTE | 2021-11-05 10:29 | PDOC4 ---
Procedure Note: ICD 10 Code: ICD 10 Code: M2 5.561 M1 7.11 Procedure Note: Patient was consented for right intra-articular knee joint Synvisc 1 injection with fluoroscopic guidance. Discussed including not limited to bleeding infection possibility extravasation of the medication as well as poor results regarding pain control. Under sterile prep and drape patient in supine position using C-arm fluoroscopic guidance patient's right knee was sterilely prepped and draped in usual fashion. Using C-arm fluoroscopy the medial aspect of the knee joint was identified and visualized and using 1% lidocaine 25-gauge needle of the area of the skin overlying the medial knee compartment was anesthetized. Using a 22-gauge quickie needle with stylette the joint was entered under direct visualization without difficulty. Stylet was removed at this time 1.5 cc of contrast was then injected with good spread within the right knee joint itself without washout or uptake. At this time aspiration was performed with removal of synovial fluid approximately 3 cc, at this time Synvisc 1, 6 cc was injected into the knee joint without difficulty or resistance. Sterile bandage was applied patient tolerated procedure well and had no complications. MERRITT MERINO MD Nov 05, 2021 10:29
== END | disposition home or self-care (01) ==
LOC: PNCL 09:25
PROVIDERS: ATTEND Anesthesiology
DX: M17.11 Unilateral primary osteoarthritis, right knee (principal); M51.16 Intervertebral disc disorders with radiculopathy, lumbar region; M48.061 Spinal stenosis, lumbar region without neurogenic claudication; M96.1 Postlaminectomy syndrome, not elsewhere classified; I10 Essential (primary) hypertension; E78.00 Pure hypercholesterolemia, unspecified; J45.909 Unspecified asthma, uncomplicated; Z90.710 Acquired absence of both cervix and uterus; Z98.890 Other specified postprocedural states; Z79.899 Other long term (current) drug therapy; Z79.82 Long term (current) use of aspirin; Z87.891 Personal history of nicotine dependence; Z72.89 Other problems related to lifestyle; Z88.8 Allergy status to other drugs, medicaments and biological substances; Z82.49 Family history of ischemic heart disease and other diseases of the circulatory system
CPT/HCPCS: 20610; 77002; Q9965; J7325

== ENCOUNTER → 2022-01-14 | Outpatient (CLI) | payer MEDICARE, BC ==
[2021-07-04 11:33] VITALS: BP 108/62
[~2022-01-14] MED LIST changes: +BUPIVACAINE MPF 0.25% 10 ML VIAL. ONE; +DEXAMETHASONE PRES.FREE 10 MG/ML VIAL. ONE; -HYLAN G-F 20 48 MG/6 ML SYRINGE INT ART ONE
--- NOTE | 2022-01-14 14:20 | PDOC ---
Progress Note - Pain Clinic Date of Service: DOS: DATE: 01/14/22 TIME: 14:14 Diagnosis: Dx: Right knee joint pain with osteoarthritis Lumbar radiculopathy with lumbar degenerative disease lumbar spinal stenosis lumbar postlaminectomy syndrome History or Present Illness: HPI: 66-year-old female returns for follow-up status post a right knee joint injection most recently November 05, 2020 with Synvisc patient reports that she did well with this but essentially does about as well with the steroid injection she does with the Synvisc injection patient reports did very well for several weeks then the pain began to return after about the past 3 to 4 weeks becoming fairly severe in the right knee with weightbearing walking standing put all of her weight on her right knee especially stairs or steps climbing or standing patient reports much better with sitting or laying down generally does not awaken her from sleep at night when she lays on her right side and waking her about once every 4 hours. Patient reports no loss of motor function no bowel or bladder incontinence but significant pain with weightbearing on the right leg rated as a 10 on scale 10 is worst over the past week 5 on average to its least and is a 5 today. Patient reports no new changes no deficits. We discussed patient's medication she is taking meloxicam she feels not helping very significantly we discussed options and will change her to a new prescription medication of diclofenac 50 mg 1 tablet p.o. twice daily. Patient was given instructions well side effects aware with the new prescription medication. Physical Exam: VS: Blood pressure is 130/86 pulse 90 respirations 18 temperature 90.4 F height 5 feet 5 inches weight is 262 pounds. PE: PHYSICAL EXAMINATION: GENERAL: The patient is awake, alert, oriented, appropriate, very pleasant in demeanor HEENT: Shows normocephalic, atraumatic. Extraocular movements are intact and symmetrical. Oral cavity: Mucous membranes moist and pink. Dentition is intact. NECK: Shows anterior throat supple without palpable lymphadenopathy noted. Swallow reflex symmetrical. CHEST: Shows normal on inspection. Breath sounds are clear bilaterally, no rales rhonchi or wheezes auscultated. HEART: Shows S1, S2 clear. No murmurs auscultated. ABDOMEN: Soft, nontender, nondistended. No palpable organomegaly is noted. BACK: Shows spine grossly in the midline. Normal-appearing cervical lordotic curvature. There is moderately increased thoracic kyphosis, some flattening of the lumbar lordotic curvature with well-healed surgical scar noted. Lumbar paraspinous muscles show symmetrical on inspection, on palpation shows some moderate tenderness diffusely throughout the upper, middle and lower distribution of the paraspinous muscles without specific trigger points, without radiation of pain. The patient has good rotational motion of the lumbar spine, both laterally as well as extension and flexion without significant difficulty. No tenderness over the spinous processes, sacrum or sacroiliac regions. EXTREMITIES: Lower extremities show deep tendon reflexes 1+ in the patellar and tendo calcaneus tendons. Motor exam is 4 on a scale of 5 with right dorsiflexion, extension, quadriceps and hamstring flexion and 4/5 on the left. Peripheral pulses are 1+ posterior tibial. No peripheral edema is noted bilaterally. Patient's right knee shows moderate tenderness palpation of the medial collateral ligament as well as over the medial aspect of the patella but not the lateral aspect some moderate tenderness with posterior palpation in the popliteal fossa good passive rotation of motion but without crepitus or ratcheting. Left side shows no tenderness with palpation and full range of motion as well. Lower extremities are warm and dry to touch, equal in color and appearance. SKIN: Shows warm and dry, good turgor. No edema. No sores, rashes or bruising throughout. Procedure: Procedure: Options were discussed with the patient. Patient's old chart was viewed as her current medication regimen updated current review of systems updated today as well. We will proceed with a right intra-articular knee joint injection today with fluoroscopic guidance. Risks are discussed including but not limited to bleeding infection possibility of intravascular ejection sequelae spread local anesthetic numbness side effects steroid medications post arthroscopy, and poor results regarding pain control. Patient understands wished to proceed. Patient will return to clinic in approximately 4 weeks for follow-up, was counseled as to return appointment, activity level, and side effect to be aware of. Medication Injected: Med Injected: Under sterile prep and drape patient in supine position using C-arm fluoroscopic guidance patient's right knee was sterilely prepped and draped in usual fashion. Using C-arm fluoroscopy the medial aspect of the knee joint was identified and visualized and using 1% lidocaine 25-gauge needle of the area of the skin overlying the medial knee compartment was anesthetized. Using a 22-gauge quickie needle with stylette the joint was entered under direct visualization without difficulty. Stylet was removed at this time 2 cc of contrast was then injected with good spread within the knee joint itself without washout or uptake. At this time solution containing 3 cc of 0.25 bupivacaine and 10 mg dexamethasone were then injected. Needle was withdrawn and sterile bandage was applied. Patient tolerated procedure well and had no complications. Condition at Discharge: Condition at Discharge: Condition at discharge stable, patient tolerated the procedure well and had no complications. MERRITT MEIRNO MD Jan 14, 2022 14:20
--- NOTE | 2022-01-14 14:21 | PDOC4 ---
Procedure Note: ICD 10 Code: ICD 10 Code: M2 5.561 M1 7.11 Procedure Note: Patient was consented for right intra-articular knee joint injection with fluoroscopic guidance. Risks discussed including but not limited to bleeding, infection, extravasation of local anesthetic and numbness as well as poor results regarding pain control and exposure to fluoroscopy. Patient understands wishes to proceed. Under sterile prep and drape patient in supine position using C-arm fluoroscopic guidance patient's right knee was sterilely prepped and draped in usual fashion. Using C-arm fluoroscopy the medial aspect of the knee joint was identified and visualized and using 1% lidocaine 25-gauge needle of the area of the skin overlying the medial knee compartment was anesthetized. Using a 22-gauge quickie needle with stylette the joint was entered under direct visualization without difficulty. Stylet was removed at this time 2 cc of contrast was then injected with good spread within the knee joint itself without washout or uptake. At this time solution containing 3 cc of 0.25 bupivacaine and 10 mg dexamethasone were then injected. Needle was withdrawn and sterile bandage was applied. Patient tolerated procedure well and had no complications. MERRITT MERINO MD Jan 14, 2022 14:21
== END | disposition home or self-care (01) ==
LOC: PNCL 13:20
PROVIDERS: ATTEND Anesthesiology
DX: M17.11 Unilateral primary osteoarthritis, right knee (principal); M25.561 Pain in right knee; I10 Essential (primary) hypertension; E78.00 Pure hypercholesterolemia, unspecified; E66.9 Obesity, unspecified; J45.909 Unspecified asthma, uncomplicated; Z85.3 Personal history of malignant neoplasm of breast; Z87.891 Personal history of nicotine dependence; Z90.710 Acquired absence of both cervix and uterus; Z98.890 Other specified postprocedural states; Z79.899 Other long term (current) drug therapy; Z72.89 Other problems related to lifestyle; Z88.8 Allergy status to other drugs, medicaments and biological substances
CPT/HCPCS: 20610; 77002; J1100; J3490; Q9965

== ENCOUNTER → 2022-02-11 | Outpatient (CLI) | payer MEDICARE, BC ==
[2021-07-04 11:33] VITALS: BP 108/62
[~2022-02-11] MED LIST changes: -BUPIVACAINE MPF 0.25% 10 ML VIAL. ONE; -DEXAMETHASONE PRES.FREE 10 MG/ML VIAL. ONE; -IOHEXOL 180 MG/ML 10 ML VIAL. ONE
--- NOTE | 2022-02-11 16:10 | KCIC ---
Three view lumbosacral spine History: Pain Standing AP, coned-down lateral and lateral views of the lumbosacral spine were obtained. There is posterior fusion of L4-5 with bilateral posterior rods and posterior fusion rods. There is d extro convex scoliosis. The vertebral bodies are aligned in the lateral view. There is no loss of charlie tebral body stature. There is loss of intervertebral disc height and marginal spurring of endplates. There is a gastric lap band. Impression: 1. Prior L4-5 fusion. 2. Dextroconvex scoliosis and degenerative changes. End Impression Electronically signed by: Alfred White III, MD (02/11/2022 4:08 PM) [facility]
== END ==
LOC: KCIC 12:30
PROVIDERS: ATTEND Neurological Surgery
DX: M47.816 Spondylosis without myelopathy or radiculopathy, lumbar region (principal); M41.86 Other forms of scoliosis, lumbar region; Z98.1 Arthrodesis status; M51.26 Other intervertebral disc displacement, lumbar region; M46.06 Spinal enthesopathy, lumbar region
CPT/HCPCS: 72100